=== PATIENT | male | born 1935 | race Caucasian/White ===

== ENCOUNTER 2024-12-10 23:07 | Inpatient (IN) | payer MEDICARE, BC, SELFPAY ==
[2024-12-10] VITALS (21 sets, daily range): BP systolic 140–171; BP diastolic 67–104
[2024-12-10 21:38] LABS: Glucose - Point of Care 108 mg/dl (70-99)
[2024-12-10 21:47] LABS: Hematocrit 37.2 % (39.0-52.0); Hemoglobin 12.8 g/dL (13.0-18.0); Mean Corp Hgb Conc. 34.4 g/dL (33.0-37.0); Mean Corpuscular Volume 97.6 fL (80.0-94.0); Nucleated Red Blood Cells % 0 % (-); Platelet Count 172 10^3/uL (130-400); Red Cell Dist. Width 12.8 % (11.5-14.5)
[2024-12-10 21:59] LABS: INR 1.01; PT 13.8 Sec (11.4-14.6)
[2024-12-10 22:00] LABS: APTT 30.7 Sec (23.4-35.0)
[2024-12-10 22:03] LABS: ALT (SGPT) 15 U/L (0-50); AST (SGOT) 20 U/L (17-59); Albumin 4.1 g/dl (3.5-5.0); Alkaline Phosphatase 76 U/L (38-126); Blood Urea Nitrogen 30 mg/dl (9-20); Calcium 9.1 mg/dl (8.4-10.2); Carbon Dioxide 25 mmol/L (22-30); Chloride 109 mmol/L (98-107); Glucose 109 mg/dl (70-99); Potassium 4.4 mmol/L (3.5-5.1); Sodium 139 mmol/L (135-145); Total Protein 6.2 g/dl (6.3-8.2); eGFR 38.30
[2024-12-10 22:13] LABS: Troponin I < 0.012 ng/ml
[2024-12-10] MEDS: TNKASE 3.2 MG IV (22:19)
--- NOTE | 2024-12-10 22:24 | ED.CVA ---
History of Present Illness
General
Chief Complaint: CVA/TIA Symptoms
Source: patient, family (daughter) and ambulance crew
Exam Limitations: clinical condition
Time Seen by Provider: 12/10/24 21:35
Onset of Stroke Symptoms
Onset of symptoms known: Yes
Date of onset of symptoms: 12/10/24
History of Present Illness
History of Present Illness:
Note:
CHIEF COMPLAINT(S)
- Possible cerebrovascular accident (stroke) with slurred speech and right-sided weakness.
HISTORY OF PRESENT ILLNESS
The patient is reported to have slurred speech and right facial droop. He is unable to move his right leg and arm. EMS reports that his symptom onset is unknown. They state that the patients friend, who is not from the same household, found him
and called for help. According to the patient, he experienced difficulties lifting his right arm and with speech at around 830. He mentioned that the weakness in his right arm began possibly around two hours prior to arrival. The patient does not
take any known strong anticoagulants like warfarin (Coumadin) but mentioned taking blood thinners, potentially aspirin. His history is somewhat limited due to profound dysarthria
ADDITIONAL HISTORY OBTAINED FROM SOURCES OTHER THAN THE PATIENT
The patients friend discovered him and informed EMS about the symptoms. EMS confirmed slurred speech, right facial droop, and right-sided weakness upon arrival. They were informed that this is not the patient�s residence and did not have any other
detailed medical history or time of onset. Patient's friend later arrives and states symptoms began around 8:30 PM
PHYSICAL EXAM
General: Alert.
Skin: Warm, dry.
Head: Normocephalic, atraumatic.
Neck: Supple, trachea midline.
Eyes, Ears, Nose, Mouth, and Throat: Oral mucosa moist.
Cardiovascular: Normal peripheral perfusion, no edema.
Respiratory: Respirations are non-labored.
Gastrointestinal: Abdomen nondistended.
Musculoskeletal: Right facial droop with left gaze preference; flaccid right upper extremity and 1 out of 5 strength in the right lower extremity.
Neurological: Severe dysarthria with significant speech difficulties. Right hemianopsia
PROBLEM LIST
- Acute: Possible cerebrovascular accident (stroke) with slurred speech and right-sided weakness.
PLAN
- Further assess the nature and severity of the possible stroke.
- Immediate imaging (e.g., CT or MRI of the brain) to determine if there is any hemorrhagic event or ischemic stroke.
- Consultation with neurology for further evaluation and management.
- Assess medication use for potential adjustment, particularly concerning aspirin or other blood thinners.
- Monitoring and supportive care as needed.
DIFFERENTIAL DIAGNOSIS
The Differential Diagnosis includes, in no particular order and is not limited to:
- Ischemic stroke
- Hemorrhagic stroke
- Transient ischemic attack (TIA)
- Intracranial hemorrhage
- Brain tumor
- Migraine with aura
- Seizure activity
- Hypoglycemia
- Hypertensive crisis/test
- Central nervous system infection (such as encephalitis)
CARE-UPDATE
12/10/24 - 21:59
Observed onset of weakness and speech changes at 8:30 p.m. Telehealth consultation with neurology initiated to assess these symptoms.
CARE-UPDATE
12/10/24 - 22:06
Patient exhibits notable confusion, unable to correctly identify the current month, and experiences difficulty responding to spoken questions. Neurological assessment reveals he can follow commands to some extent, such as closing his eyes and making
a fist. However, he demonstrates significant challenges with language tasks, indicated by repetitive speech.
Motor examination shows the ability to lift the left arm and leg, but difficulty is noted with the right arm and leg, evidenced by limited capacity to elevate them fully. Sensory testing indicates the patient can feel touch bilaterally, though
verbalizing locations is challenging.
Further assessment with CTA is pending to evaluate potential underlying vascular issues given the focal neurological deficits observed.
EKG
My independent EKG interpretation is:
- Normal sinus rhythm
- Poor R wave progression
- Normal axis
- No Q wave changes
Disposition:
SUMMARY OF ENCOUNTER
The patient, an 89-year-old male, presented to the emergency department with symptoms suggesting a possible stroke, including dense right-sided hemiplegia, acute severe dysarthria, and a right facial droop. The onset of symptoms was noted at
approximately 8:30 PM, as reported by both the patient and his friend. The patient had undergone a nuclear stress test earlier in the day. A stroke alert was initiated, and the patient was rapidly taken for CT imaging, including a CTA and CTP.
Neurology evaluated the patient and, upon imaging review, there was no evidence of a large vessel occlusion. TNK was recommended and administered after discussion and consent from the patients daughter. Neurology advised post-TNK monitoring in the
ICU and a full stroke workup without further intervention at this point.
DISPOSITION
Admit to ICU for monitoring.
ASSESSMENT
Possible cerebrovascular accident, currently managed with TNK and ICU monitoring; mild renal insufficiency.
MANAGEMENT OF THE PATIENTS CARE WAS DISCUSSED WITH
Neurology team for further evaluation and management recommendations.
PLAN
- Administer TNK as per neurology recommendation.
- ICU admission for close monitoring post-TNK administration.
- Conduct a full stroke workup as advised by neurology.
- Monitor renal function due to minor renal insufficiency.
INDEPENDENT REVIEW OF LABS AND INTERPRETATION OF TESTS
My independent review of laboratory data indicates normal hemoglobin, normal white blood cell count, minor renal insufficiency with a creatinine of 1.7, normal liver function tests, and a negative troponin.
PATIENT EDUCATION AND COUNSELING
Discussion with the patients daughter Sarah regarding the administration of TNK and the expected ICU monitoring was conducted, including the rationale and anticipated outcomes.
FOLLOW-UP INSTRUCTIONS
Advised continued monitoring and further evaluation in the ICU; neurology to manage ongoing care.
MEDICATION RECONCILIATION
No evidence of anticoagulant use found upon review of records.
MEDICAL DECISION MAKING
- Number and Complexity of Problems Addressed:
Chronic conditions affecting care: Minor renal insufficiency.
Differential diagnosis includes: Ischemic stroke, hemorrhagic stroke, transient ischemic attack (TIA), intracranial hemorrhage.
- Data:
Category 1:
My independent interpretation of the CT Angiography (CTA) shows no large vessel occlusion. The labs reviewed include normal hemoglobin, white blood cell count, minor renal insufficiency (creatinine 1.7), normal liver function tests, and negative
troponin.
Category 2:
Clinical information obtained from an independent historian: The patients friend provided information about symptom onset.
Neurologys review of the patients pen chart, confirming no anticoagulant use and no old records available at the hospital.
Category 3:
Discussion of management with the neurology team led to the decision to administer TNK and admit the patient to the ICU for monitoring.
-Risk:
The decision to admit the patient to the ICU for monitoring after TNK administration due to the risk of complications associated with an acute cerebrovascular accident.
DIAGNOSIS
- Cerebrovascular accident, unspecified (ICD-10: I63.9)
- Minor renal insufficiency (ICD-10: N19)
Phy Exam
Physical Exam
Physical Exam:
.
Course
Orders/Labs/Results
Orders:
Orders
12/10/24 Breakfast
NPO
Allow oral meds: Yes
Allow clear liquids: Sips of Clears
Comment: Pending formal Speech eval
12/10/24 21:34
CT HEAD STROKE ALERT W/o Cont Stat
Comment:
Reason For Exam: r sided weakness
12/10/24 21:35
CT BRAIN PERF STROKE ALERT Urgent
Comment:
Reason For Exam: R sided weakness
CT HEAD/NECK ANG STROKE ALERT Urgent
Comment:
Reason For Exam: R sided weakness
12/10/24 21:36
Electrocardiogram (*1) Stat
Reason for Study: Other
Other Reason for Exam: neuro symptoms
Bedside Glucose- Treatment ONCE
Cardiac Monitoring- Treatment ONCE
EKG- Treatment ONCE
12/10/24 21:39
Complete Blood Count/With Diff Urgent
Comprehensive Metabolic Panel Urgent
Erythrocyte Sed Rate Urgent
Comment: ADDED
Glycohemoglobin (HgbA1c) Urgent
PTT Urgent
Prothrombin Time Urgent
Troponin I Urgent
12/10/24 22:16
Tenecteplase [Tnkase] 16 mg Syringe [Syringe Non-Pump] 0 ml IV NOW
Provider explained risk/benefits to patient &/or caregiver?: Yes
Blood pressure: 154/67
12/10/24 22:46
Admit/Transfer Patient As Directed
Co-Sign Provider:
Level of Care: Inpatient admission
Assign to:: ICU
Physician / Group: Marc
Diagnosis: Acute CVA
Reason for Hospitalization: CVA
Expected length of stay greater than two midnights?: Yes
ELOS- Estimated Length of Stay in days: 4
I certify the patient meets the requirements for IP care: Yes
Code Status As Directed
Resuscitation Status: Full Code
PRN Pain Medication Management As Directed
May give lesser potent ordered pain med per pt: Yes
preference::
Protocol:: Medication orders for pain may be administered in a
manner that supports deferring to patient preference
when the pt is:
- Requesting an ordered lesser potent pain medication.
Least to most potent pain medications are defined
as: acetaminophen < NSAID < tramadol < opioids
(morphine, oxycodone, hydromorphone).
- Requesting a lesser dose of the same medication IF
ORDERED.
- Requesting a less intrusive route of administration
if both routes are prescribed by the provider (PO <
IV).
12/10/24 23:21
Acetaminophen [Tylenol] 650 mg PO Q4HPRN PRN
Labetalol HCl [Trandate] 5 mg IV Q6HPRN PRN
12/10/24 23:21
Electrocardiogram (*1) Routine
Reason for Study: TIA/Stroke
Case Management Consult Once
Case Management Consult: Discharge Planning
Consult Notification Routine
Specialty to Notify: Principle Software Engineer
Consult Notification Routine
Specialty to Notify: Neurology
Consult Notification Routine
Specialty to Notify: Physiatry
DIETARY IP CONSULT Routine
Reason for Consult: stroke/TIA
Principle Software Engineer Consult Routine
Consulting Provider: Aleksandra Yañez
Was physician already notified: No
Reason for consult: CVA
NEUROLOGY CONSULT Urgent
Consulting Provider: Meño Elise
Was physician already notified: No
Reason for consult: Acute CVA
Parking Supervisor Urgent
Urinalysis Routine
Comment: If not done in the ED
MR Brain Without Contrast Routine
Comment: complete 24 hrs post tenecteplase administration
Reason For Exam: possible stroke, status post tenecteplase
Recent pill cam endoscopy?: No
Activity As Directed
Activity Level: Bathroom Privileges
Out of Bed- Chair
With Assistance
Comment: x 24hr post tenecteplase admin (and no PT/OT). then OOB as tolerated
Bladder Scan As Directed
Follow Bladder Retention/Intermittent Cath Algorithm?: Yes
PRN if no void in __ hours: 6
Frequency: Per Retention Algorithm
If Bladder Scan Result >: 400
then:: Straight cath
EKG with chest pain [ECG as needed] As Directed
ECG as needed for:: Chest Pain
Head of Bed-Restrictions As Directed
Elevation Level: 30 degress
Frequency: At all times
Comment: head of bed up 30 degrees for 24 hours
Hemetest Stools As Directed
Comment: hemoccult all stools if patient received tenecteplase
I/O [Intake/ Output] As Directed
Frequency: Per unit guidelines
NIH Stroke Scale As Directed
Directions: Other
Comment: NIH stroke Scale to be completed prior to thrombolytic administration, then every 1 hour for 2
hours, then every shift and with change in condition and/or mental status.
Neurological Checks As Directed
Frequency: Per unit guidelines
Additional Instructions:: after start of thrombolytic therapy:
q15min x 2 hrs, q30min x 6 hrs, q1h x 16 hrs, q4h x 24 hrs, then every shift and
with any changes.
Notify MD As Directed
Notify physician if: - Any deterioration, change in neurological status, development of severe headache,
nausea and vomiting, or with any signs of bleeding. (see guidelines for suspected
intracerebral hemorrhage).
- If intracranial hemorrhage is suspected or confirmed by imaging, anticipate need for
osmotic diuretic to maintain euvolemia.
Notify MD As Directed
Notify physician if: Glucose less than 70 or greater than 180.
Anticipate corrective insulin orders.
Notify MD As Directed
Notify physician if: SBP not at goal within 30 minutes of prn LABETALOL administration.
notify provider to initiate continuous infusion of nicardipine or clevidipine.
Notify MD As Directed
Notify physician if: unable to obtain MRI of head within 22-32 hours of tenecteplase administration
- contact Neurology for order for CT of head without contrast
Patient Education As Directed
Type: Stroke education packet
Comment: provide to patient and family
Pneumatic Compression Sleeves As Directed
Type: Knee high
Precautions As Directed
Type of Precautions: Bleeding
Comment: post Bleeding Precaution sign at bedside (if patient received tenecteplase)
Straight Cath As Directed
Frequency: Per Retention Algorithm
Additional Instructions: straight cath as needed per acute urinary retention algorithm for 24 hrs
Additional Instructions: for bladder scan greater than 400 mL
Thrombolytic Precautions As Directed
Thrombolytic Precautions:: [place] bleeding precautions. Minimize invasive procedures and venipunctures,
avoid IM injections and over-handling patient, and check all puncture sites for
bleeding. Assess the patient and notify provider for signs and symptoms of
internal or serious bleeding, such as changes in vital signs or evidence of blood
in the urine or stool.
Additional instructions: Hemocult all stools.
Apply direct pressure or pressure dressing to any compressible puncture sites.
No ABG sampling or Gallardo insertion after Tenecteplase administration for 24 hours,
unless directed by the Neurologist/Attending.
Vital Signs As Directed
Frequency: q15m
Call for:: BP greater than 180/105 mmHg or less than 100/60 mmHg
Additional Instructions:: after start of thrombolytic therapy:
q15min x 2 hrs, q30min x 6 hrs, q1h x 16 hrs, q4h x 24 hrs, then every shift and
with any changes.
Weight As Directed
Frequency: Daily
O2 Therapy [RESP] Routine
Nasal Cannula Liter Flow: 2 LPM
Titrate/Wean O2 to maintain O2 sat greater than (%): 94
Comment: starting at 2L/min . Notify Physcian if greater than or equal to 6 L/min
Special Instructions: Titrate oxygen via nasal cannula starting at 2 liters/minute to keep SpO2 greater than
94%. Notify physician if greater than or equal to 6 liters/minute of O2.
Ot Eval And Treat Routine
Physiatry Consult Routine
Consulting Provider: Adelfo Ruvalcaba
Was physician already notified: No
Reason for consult: stroke/TIA
Pt Eval And Treat Routine
Treatment: After 24 hours
Activity Level: Ambulate
With Assistance
Speech Therapy Eval & Treat Routine
DX Deep Vein Thrombosis Video Routine
12/11/24 06:00
Basic Metabolic Panel IN AM
Cardiovascular Evaluation IN AM
Complete Blood Count/No Diff IN AM
PTT IN AM
Prothrombin Time IN AM
Abnormal Lab Results
12/10/24 12/10/24
21:37 21:39
RBC 3.81 L 10^6/uL
(4.70-6.10)
Hgb 12.8 L g/dL
(13.0-18.0)
Hct 37.2 L %
(39.0-52.0)
MCV 97.6 H fL
(80.0-94.0)
MCH 33.6 H pg
(27.0-31.0)
Absolute Monos (auto) 1.0 H 10^3/uL
(0.1-0.6)
Monocytes % 11.2 H %
(1.7-9.3)
Chloride 109 H mmol/L
(98-107)
BUN 30 H mg/dl
(9-20)
Creatinine 1.7 H mg/dL
(0.7-1.3)
Glucose 109 H mg/dl
(70-99)
Total Protein 6.2 L g/dl
(6.3-8.2)
POC Glucose 108 H mg/dl
(70-99)
12/10/24 21:39
12/10/24 21:39
Vital Signs
Initial and Last Documented VS:
Initial Vital Signs
BP
162/77
12/10/24 21:34
Last Documented Vital Signs
Temp Pulse Resp BP Pulse Ox
98.7 F 91 19 171/89 97
12/10/24 22:13 12/10/24 23:20 12/10/24 23:20 12/10/24 23:20 12/10/24 22:49
*Pulse Oximetry
SaO2: 98
Oxygen Mode of Delivery: Room air
Patient hypoxic: no
*Critical Care Note
Total Time (30-74mins, 75-104mins- exclusive of procedures): 55 minutes
ED Attending Note
-
Portions of this chart may have been created with voice recognition software.� Occasional wrong word or��sound alike� substitutions may have occurred due to the inherent limitations of voice recognition software.
Discharge Plan
Departure
Patient Disposition: Admit
Date of Disposition: 12/10/24
Time of Disposition: :25
Admit to: ICU
Presentation/result/management discussed w/ accepting MD/DO: Hospitalist
Discharge Problem:
Acute cerebrovascular accident (CVA)
Interventions
Interventions:
*Risk Screen - Suicide Last Done: 12/10/24 22:11
*General Assessment Last Done: 12/10/24 22:11
*Neglect/Abuse Screening Last Done: 12/10/24 22:11
*ED COVID-19 Vaccine History Last Done: 12/10/24 22:11
*Nursing Disposition Last Done: 12/10/24 23:27
ED- Pulmonary Assessment Last Done: 12/10/24 22:18
ED- Neurological Assessment Last Done: 12/10/24 22:15
ED- Cardiac Assessment Last Done: 12/10/24 22:18
Discharge Date and Time
Discharge Date/Time: 12/10/24 23:27
--- NOTE | 2024-12-10 22:28 | EDRN ---
per patient's friend (Radha Pang) at bedside, pt [place] from [place] this [place] (pt resides there) to go to [facility] for a nuclear stress test. pt went to Radha's [place] tonight to visit in which Radha states he seemed tired, otherwise
was in his usual state of health. Radha states pt started w/ slurred speech & R-sided weakness at around 2030 tonight which was an abrupt onset. Radha contacted 911 who transported pt to [facility]
--- NOTE | 2024-12-10 22:52 | HPS.HSE ---
Family Physician
-
Family Physician: NOT KNOW UNKNOWN - PT DOES
Chief Complaint
-
R Weakness
History of Present Illness
Patient is an 89y M with PMH significant for ASCVD and hypertension who presents to ED complaining of R sided weakness and dysarthria. Patient states that he underwent a stress test at [facility] this AM. He notes that this was a chemical stress test
and states that he has never had this type of stress before. He felt well after the study and traveled to [place] to visit with friends. Shortly after arrival here patient began to note weakness in the R side and slurred speech. Patient and
friend state that these symptoms started just under 2 hours from his arrival here to the ED. Patient arrived with dense R hemiparesis. Decision was made to administer TNK.
Patient is currently awake and alert. Able to answer questions and follow commands - though communication somewhat difficult due to dysarthria.
Patient denies any prior h/o stroke.
He has prior cardiac stents and takes ASA 81mg daily. He denies any OAC / blood thinners.
Medical History
Past Medical History
Past Medical History: Reports Other
Additional Past Medical History:
ASCVD
Hypertension
Past Surgical History: Reports Other
Additional Past Surgical History:
PTCA wuth Stent (x2)
Social History
Tobacco: Non-smoker
Alcohol: Daily (2 drinks daily.)
Drug: None
Family History
Family History: Not pertinent
Allergies / Home Medications
Allergies reflects when Allergies were last updated in [facility].
Home Medications with original date entered in [employer]
Allergy/Medication List:
Unable to obtain at present.
If medication reconciliation has not been performed, why?: Medication List N/A
Review of Systems
-
History Source: Patient
A 12 point ROS was completed and negative except as noted: Yes
Constitutional: Denies Fever or Chills
Respiratory: Denies Cough or Trouble Breathing
Cardiac: Denies Chest Pain or Palpitations
Abdomen/GI: Denies Abdominal Pain, Nausea, Vomiting or Diarrhea
: Denies Dysuria or Frequency
Musculoskeletal: Denies Joint Pain or Edema
Neurological: Reports Weakness, Numbness and Other (Slurred speech.); Denies Dizzy or Headache
Psych: Denies Depression or Anxiety
Physical Exam
Vital Signs
Vital Signs
Temp Pulse Resp BP Pulse Ox
98.7 F 85 23 149/86 97
12/10/24 22:13 12/10/24 22:50 12/10/24 22:50 12/10/24 22:50 12/10/24 22:49
Physical Exam
General: Other (89y M acutely ill.)
HEENT: Other (Dry MM. Neck supple.)
Respiratory: Clear; No Wheezes, Rales or Rhonchi
Cardiac: S1/S2 and Regular Rhythm; No Murmur
GI: Soft, Non Tender, Non Distended and Normal Bowel Sounds
Musculoskeletal: No Clubbing, No Cyanosis and No Edema
Neuro: AO x 3 and Other (R hemiparesis with RUE weakness > RLE weakness. R hemineglect. R facial droop and dysarthria.)
Laboratory Results
-
12/10/24 21:39
12/10/24 21:39
Laboratory Results
PT 13.8 Sec (11.4-14.6) 12/10/24 21:39
INR 1.01 12/10/24 21:39
APTT 30.7 Sec (23.4-35.0) 12/10/24 21:39
Total Bilirubin 0.7 mg/dl (0.2-1.3) 12/10/24 21:39
AST 20 U/L (17-59) 12/10/24 21:39
ALT 15 U/L (0-50) 12/10/24 21:39
Alkaline Phosphatase 76 U/L (38-126) 12/10/24 21:39
Troponin I < 0.012 ng/ml 12/10/24 21:39
Impression/Plan
-
A/P: Patient is an 89y M with PMH significant for ASCVD and hypertension who presents to ED complaining of R sided weakness and dysarthria for 2 hours.
Acute CVA
- Admit to ICU post-TNK.
- Dense R hemiparesis with suspected L MCA CVA.
- CT, CTA, CT perfusion studies done in the ED without large vessel occlusion, perfusion abnormality, etc.
- Post-TNK protocol including BP control, serial neuro exams, etc.
- Begin antiplatelet therapy after 24 hours.
- MRI after 24 hours.
- Neurology evaluation for additional recommendations.
- PT / OT / Speech and PM&R evaluations.
- Would likely benefit from acute rehab following discharge.
- Follow for clinical improvement and / or any new or worsening symptoms.
- Need to confirm meds with pharmay / external records.
ASCVD
- s/p chemical stress test this AM (his first stress that was not done on a treadmill).
- Reconcile and resume usual CV med regimen.
- Restart ASA after 24 hours as noted above.
Hypertension
- Follow BP closely as per protocol.
- IV labetalol for BP > 180/105.
- Adjust med regimen prior to discharge for eventual goal of normotension.
DELMY / CKD
- SCr = 1.7. No prior baseline labs available.
- Follow labs / lytes over 48-72 hours to establish baseline.
DVT Prophylaxis: SCDs
Code Status: Full
--- NOTE | 2024-12-10 23:30 | PTCARENOTE ---
Admit to ICU. HR SR w/ occasional PVCs on telemetry. Handoff NIH completed bedside w/ ED RN. NIH 19. Hemianopia R eye - R upper and R lower field. Slight evidence of contraction in RUE, but no movement/no resistance to gravity. Able to move RLE, but
drifts to bed. Ataxia RUE and RLE. When R side of face and R arm touched, pt states it is his L side being touched or cannot feel it. Mild/moderate dysarthria and severe aphasia - unable to read words or properly identify images. Occasionally uses
inappropriate words. Answers LOC questions appropriately. Pupils reactive 3mm b/l, R slightly more sluggish than L.
[2024-12-10 23:46] LABS: Glucose - Point of Care 133 mg/dl (70-99)
[2024-12-11] VITALS (75 sets, daily range): BP systolic 133–173; BP diastolic 66–99; BMI 20.7
--- NOTE | 2024-12-11 03:00 | PTCARENOTE ---
Symptoms that had previously improved worsened. NIH 21 - [employer] ARCH[employer] aware. CT scan ordered.
[2024-12-11] MEDS: NSS 500 IV (04:11)
[2024-12-11] MEDS: NSS 1000 IV ×3 (04:11→20:06)
[2024-12-11 04:16] LABS: Hematocrit 37.1 % (39.0-52.0); Hemoglobin 12.9 g/dL (13.0-18.0); Mean Corp Hgb Conc. 34.8 g/dL (33.0-37.0); Mean Corpuscular Volume 96.6 fL (80.0-94.0); Platelet Count 178 10^3/uL (130-400); Red Cell Dist. Width 12.7 % (11.5-14.5)
--- NOTE | 2024-12-11 04:19 | W.PN.UPDATE ---
Update Note
Progress Note Update
12/11/2024
0245 Asked to evaluate the patient by RN for worsening neurological symptoms. Patient shortly after arriving to the ICU was able to lift his right arm and leg, vision had improved, speech improved, and facial droop had improved. Now at this time
he has hemiparesis on the right, right sided neglect, complete hemianopia, dysarthria, and right facial droop. SBP 150s, no hypotension noted, BPs have been stable. CT scan head ordered stat and stroke fellow at [facility] called Dr. Tyson to report
worsening symptoms after initial improved s/p TNK. Ctscan read by Dr. Tyson, no bleed noted, recommendations received to repeat CT angio head and neck, IVF bolus, start IVFs, and lower patients head of bed.
NEURO:
Mental Status:�Alert. Speech is slurred and garbled.
Cranial Nerve:�Pupils are equal, round, and reactive to light. Complete hemianopia. Ocular movements are intact. Right facial droop. Speech is slurred, dysarthria. No shoulder shrug with right sternocleidomastoid and trapezius.
Motor:�Muscle bulk and tone are normal. Strength is 0/5 on right arm and leg proximally and distally, left arm and leg 5/5 strength.
Coordination:�unable to perform [id number] or [id number] on right.
Gait:�deferred due to acuity.
[2024-12-11 04:22] LABS: INR 1.02; PT 13.9 Sec (11.4-14.6)
[2024-12-11 04:23] LABS: APTT 29.2 Sec (23.4-35.0)
[2024-12-11 04:37] LABS: Blood Urea Nitrogen 26 mg/dl (9-20); Calcium 9.6 mg/dl (8.4-10.2); Carbon Dioxide 27 mmol/L (22-30); Chloride 110 mmol/L (98-107); Estimated Creatinine Clearance 31 ml/min; Glucose 126 mg/dl (70-99); HDL Cholesterol 60 mg/dl; LDL Cholesterol, Calculated 41 mg/dl; Magnesium 1.8 mg/dl (1.6-2.3); Potassium 3.9 mmol/L (3.5-5.1); Sodium 139 mmol/L (135-145); Very Low Density Lipoprotein 20 mg/dl (0-30); eGFR 44.50
--- NOTE | 2024-12-11 06:00 | PTCARENOTE ---
Pt to CT for repeat head/neck CTA. Pt drowsy but arousable. Hemiparesis on the right, right sided neglect, complete hemianopia, dysarthria, and right facial droop. Able to flex R foot and was observed crossing R leg over L leg during CTscan, but
unable to do once back in room and on command.
--- NOTE | 2024-12-11 07:20 | CON.INTV ---
Addendum entered and electronically signed by Aleksandra Yañez MD 12/12/24 05:25:
Patient transferred out of ICU
[facility] K[facility] service will sign off, please call as needed.
Original Note:
Consultation
Consultation Request
Date/Time Consultation Requested: December 11, 2024
Date/Time Consultation Performed: December 11, 2024
Medical History
-
Chief Complaint: weakness, difficulty speaking
History of Present Illness:
89 yo M PMH HTN, HLD, CAD p/w R sided weakness, dysarthria. He was undergoing nuclear stress test on 12/10 AM and then went to [place] to spend time. He was functioning well after the cardiac stress test. However, he experienced weakness and
difficulty speaking and then presented to the ED in [place].
In the ED, imaging workup revealed no evidence of LVO. TNK was administered given clinical presentation at 22:19, 12/10/2024.
Then, he was admitted to ICU for further management.
Overnight events were notable for worsening right sided hemiparesis which prompted imaging. There was no evidence of bleeding on the repeat imaging.
This morning, his exam is dense right sided hemiplegia with dysarthria, and right sided facial droop.
Past Medical History
Past Medical History: Reports Other
Additional Past Medical History:
ASCVD
Hypertension
Past Surgical History: Reports Other
Additional Past Surgical History:
PTCA wuth Stent (x2)
Social History
Tobacco: Non-smoker
Alcohol: Daily (2 drinks daily.)
Drug: None
Allergies / Home Medications
Allergies
Allergy/AdvReac Type Severity Reaction Status Date / Time
No Known Allergies Allergy Verified 12/10/24 22:09
Review of Systems
-
History Source: Patient
All other systems: Negative unless noted
EENT: No Symptoms
Respiratory: No Symptoms
Cardiac: No Symptoms
Abdomen/GI: No Symptoms
: No Symptoms
Musculoskeletal: No Symptoms
Skin: No Symptoms
Neuro: Weakness and Other (dysarthria)
Endocrine: No Symptoms
Hematologic/Lymphatic: No Symptoms
Vitals / Labs / Diagnostic Testing
Vital Signs
Temp Pulse Resp BP Pulse Ox
97.9 F 78 23 151/90 95
12/11/24 04:31 12/11/24 06:30 12/11/24 06:30 12/11/24 06:30 12/11/24 06:30
Lab Data
12/11/24 04:02
12/11/24 04:02
Laboratory Results
12/10/24 12/11/24
21:39 04:02
PT 13.8 13.9
INR 1.01 1.02
APTT 30.7 29.2
Labs n/f Cr 1.5
Diagnostic Testing:
CT Head/Neck
IMPRESSION:
CTA Head: No significant arterial stenosis. Mild stenosis within the bilateral cavernous ICA secondary to calcified atherosclerotic plaque. 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 No aneurysm.
CTA Neck: There is calcified atherosclerotic plaque of the carotid bifurcation/proximal ICA with approximately 70% stenosis on the right, however image quality at this level is mildly degraded by motion artifact.
There is biapical pleural-parenchymal scarring with pleural calcifications which can be seen as a sequelae of prior asbestos exposure.
Physical Exam
-
HEENT: Normocephalic
Cardiovascular: Regular Rhythm and Other (no murmurs, no peripheral edema)
Respiratory: Clear
GI: Non Tender
Neurology: AO x 3 and Other (below)
Exam:
AOx3
right sided facial droop
unable to move right arm
able to move right leg, but not against gravity
dysarthria
right-sided neglect
able to move left arm and leg
Assessment
-
89 yo M PMH HTN, CAD, HLD p/w right sided hemiparesis, right facial droop most concerning for CVA, s/p TNK.
# Acute CVA
- TNK administered at 22:19, 12/09/2024. F/u MRI 24 hr later
- BP is 160s-170s systolic. Permissive HTN, goal < 180 SBP
- Hold antiplatelet and anti-hypertensive medications for at least 24 hours
- Speech, PT/OT have been consulted, f/u recommendations
- F/u Neurology recommendations
- SCDs for DVT ppx
# HLD
- Chart review, and per daughter, takes rosuvastatin at home.
- Consider restarting rosuvastatin
- Perform medication reconciliation
Recommendations are not final until attending attestation/note.
[2024-12-11 07:27] LABS: Urine Character Clear (Clear)
--- NOTE | 2024-12-11 07:43 | W.PN.HOSP.TC ---
Addendum entered and electronically signed by Anson Murry MD 12/11/24 17:24:
Need to confirm with neurology when to start any blood thinners, including, but not limited to Aspirin.
Original Note:
Today's Communication/Plan
-
See plan
Assessment / Plan
Assessment / Plan
Physical Exam
General: Not in acute distress
HEENT: Dry mucosal membranes. Neck supple.
Respiratory: Clear to Auscultation Bilaterally
Cardiac: S1/S2 and Regular Rhythm
GI: Soft, Non Tender, Non Distended and Normal Bowel Sounds
Musculoskeletal: No Cyanosis and No Edema
Neuro: R hemiparesis with RUE weakness > RLE weakness. R hemineglect. R facial droop and dysarthria.
Assessment/Plan
89y M with PMH significant for cardiac stents and hypertension who presented to the [facility] ED complaining of R sided weakness and dysarthria. Patient stated that he underwent a stress test at [place] on 12/10/24 morning. He noted that this was a
chemical stress test and states that he has never had this type of stress before. He felt well after the study and traveled to [place] to visit with friends. Shortly after arrival here patient began to note weakness in the R side and slurred
speech. Patient and friend state that these symptoms started just under 2 hours from his arrival to the [facility] ED. Patient arrived with dense R hemiparesis. Decision was made to administer TNK.
Acute CVA
- Continue to monitor in ICU status post-TNK -- TNK administered at 22:19, 12/09/2024.
- Dense R hemiparesis with suspected L MCA CVA.
- CT, CTA, CT perfusion studies done in the ED without large vessel occlusion, perfusion abnormality, etc.
- Permissive HTN, goal < 180 SBP
- Per neurology, after initial 24-hour timeframe, would initiate only return the patient to the use of aspirin as the risk of dual antiplatelet therapy is high based on likely large sized area of ischemic injury
- Speech, PT/OT have been consulted, f/u recommendations
- MRI Brain
- Neurology evaluation for additional recommendations.
- Need to confirm meds with pharmamcy / external records.
Right Arm Swelling
-Check RUE ultrasound
Coronary Artery Disease status post (stent(s))
- s/p chemical stress test this AM (his first stress that was not done on a treadmill).
- Reconcile and resume usual CV med regimen.
- Restart ASA as per neurology above
Hypertension
- Follow BP closely as per protocol.
- IV labetalol for BP > 180/105.
- Adjust med regimen prior to discharge for eventual goal of normotension.
DELMY / CKD
- SCr = 1.7-->1.5. No prior baseline labs available.
- Follow labs / lytes over 48-72 hours to establish baseline.
Speech/Diet: RE: Stovall in 3370 - Recommend level 4/puree and moderately (honey) thick liquids. Speech therapy to be continued inpatient and after discharge, outpatient.
DVT Prophylaxis: SCDs
Code Status: Full
Anticipated Discharge: > 48 hours
Subjective/Interval History
-
Date of Service: December 11, 2024
Patient was seen and examined. Overnight events were notable for worsening right sided hemiparesis, repeat imaging was done, there was no evidence of bleeding on the repeat imaging.
Objective Data
-
Labs:
Laboratory Results
12/10/24 12/11/24
21:39 04:02
WBC 9.3 11.4 H
Hgb 12.8 L 12.9 L
Hct 37.2 L 37.1 L
Plt Count 172 178
PT 13.8 13.9
INR 1.01 1.02
APTT 30.7 29.2
Sodium 139 139
Potassium 4.4 3.9
Chloride 109 H 110 H
Carbon Dioxide 25 27
BUN 30 H 26 H
Creatinine 1.7 H 1.5 H
Glucose 109 H 126 H
Calcium 9.1 9.6
Total Bilirubin 0.7
AST 20
ALT 15
Alkaline Phosphatase 76
Vital Signs:
Vital Signs
Temp Pulse Resp BP Pulse Ox
98 F 81 14 159/97 94
12/11/24 07:30 12/11/24 07:20 12/11/24 07:20 12/11/24 07:20 12/11/24 07:27
I&O
12/10/24 12/11/24 12/12/24
06:59 06:59 06:59
Intake Total 500 / 500 200 / 200
Output Total 550 / 550 600 / 600
Balance -50 / -50 -400 / -400
[2024-12-11 07:53] LABS: Urine Red Blood Cell 0-2 /HPF (0-2); Urine Squamous Cell 0-2 /LPF (Few)
--- NOTE | 2024-12-11 08:06 | PTCARENOTE ---
pt received from previous rn- completed nih with offgoing nurse, see flowsheet, NIH 21. nsr with pvcs on monitor, room air, no complaints at this time. pt with right sided hemiparesis, hemianopia, dysarthria and aphasia. right side neglect. neuro
assessment recompleted with Dr. Rouse and pt was able to move right leg more than previous and wiggled right arm. pt was able to say more sentences clearly. daughter at bedside, education and plan of care provided to both, verbalized understanding.
all safety precautions in place, call sims within reach.
--- NOTE | 2024-12-11 08:06 | PTCARENOTE ---
pt received from previous rn- completed nih with offgoing nurse, see flowsheet, NIH 21. nsr with pvcs on monitor, room air, no complaints at this time. pt with right sided hemiparesis, hemianopia, dysarthria and aphasia. neuro assessment recompleted
with Dr. Rouse and pt was able to move right leg more than previous and wiggled right arm. pt was able to say more sentences clearly. daughter at bedside, education and plan of care provided to both, verbalized understanding. all safety precautions in
place, call sims within reach.
--- NOTE | 2024-12-11 08:54 | CON.NEURO4 ---
Addendum entered and electronically signed by Meño Elise MD 12/11/24 11:23:
Studies reviewed.
I have personally examined the patient. I reviewed and agree with the MOLDER FEEDER's Note.
My addenda:
Awake, alert, interactive. No acute distress.
Speech thick, at times not relevant to conversation.
Follows 1-step requests w/ difficulty. No tremor.
Extra-ocular movements with gaze preference to the left
Facial movements reduced on the right side of the face. Hearing intact to normal conversational volume.
Right lower extremity hemiparesis with plegia in the right upper extremity
Neck: full ROM.
Chest: no dyspnea
Heart: no JVD
Ext: (-) Clubbing, (-) Cyanosis, (-) Edema
IMPRESSIONS/RECOMMENDATIONS:
Abrupt onset of right hemibody weakness and aphasia most likely secondary to left middle cerebral artery acute ischemic stroke. Patient received tenecteplase although result is a profound stroke
After initial 24-hour timeframe, would initiate only return the patient to the use of aspirin as the risk of dual antiplatelet therapy is high based on likely large sized area of ischemic injury
Check MRI of brain when possible
Rehabilitation evaluations
D/W patient / family / nursing
All questions answered.
Will continue to follow patient.
Original Note:
Documented by User: Tata Ledbetter NP 12/11/24 10:49
Consultation - Neurology 4
-
CONSULTING PHYSICIAN: Meño Elise MD
REFERRING PHYSICIAN: Hospitalists/Dr. Tran
DICTATED BY: ANDRE Go
DATE/TIME OF REQUEST: 12/10/24
DATE/TIME OF CONSULTATION: 12/11/24
Reason for Consultation: Stroke Alert
History of Present Illness:
This is an 89-year old right-handed male who has presented to the hospital on 12/10/24 with report of right-sided weakness and dysarthria. Patient underwent a cardiac chemical stress test at [place] yesterday morning (12/10/24). The study went smoothly
and he continued to be in his usual state during the day. At 2030, his friend noted that he patient suddenly developed dysarthria and right-sided weakness, prompting him to call 911. EMS activated a stroke alert. CT head, CTA head/neck, and CT
perfusion were obtained and were negative for any acute abnormalities. NIHSS was 17 for right-sided hemiplegia, severe dysarthria, severe aphasia, right facial drooping, right-sided neglect, and right visual field loss. TNK was administered per
protocol. He was not a candidate for IAT due to no LVO. Initially, his symptoms improved slightly, but then worsened significantly again overnight, prompting a stroke alert to be activated. CT head, CTA head/neck was obtained again and is negative
for any acute abnormalities. This morning (12/11/24), patient's symptoms persist. He denies any pain, numbness, chest pain, palpitations, and shortness of breath. He denies any history of stroke, he was taking aspirin 81mg daily.
Past Medical History: HTN, HLD, CAD, gout
Surgical History: Cardiac stent x2
Family History: Reviewed and noncontributory.
Social History: 2 alcoholic beverages daily. Denies tobacco and illicit drug use.
Allergies: No known allergies.
Home Medications: See below.
Review of Symptoms:
Patient denies any fever, headache, chest pain, shortness of breath, GI or symptoms.
�Per the HPI.�All systems are reviewed negative except above.
Physical Exam:
The patient is afebrile, abdomen is nondistended, breathing is unlabored, skin is warm and dry, no edema.
NIH Stroke Scale:
I performed the NIH stroke scale on the patient on 12/11/24 at 0900. The patient scored 17 points on the NIH stroke scale assessment, which were assigned as follows: See below.
Neurologic Examination:
The patient is awake, alert and oriented x 3. He is able to follow commands and answer questions appropriately. There is moderate aphasia. There is severe dysarthria. On cranial nerve assessment, pupils are 3 mm bilateral, round and reactive to
light and accommodation. There is a dense right homonymous hemianopia. There is a left gaze preference, does not cross midline to the right. There is right facial drooping. Hearing is intact bilaterally to normal conversation volume. Tongue palate
and uvula are midline. Motor strengths are 5/5 left upper, RUE 0/5, LLE 5/5, RLE 3/5 extremities on medical research [place] scale. There is drift in the RLE. No involuntary movement noted. Deep tendon reflexes are 2+ bilateral upper and left lower
extremities, trace RLE, and Babinski is positive on the right. There is extinction noted on double simultaneous stimulation on the right side. Coordination is intact by finger to nose in the LUE, FARIDA RUE.
Lab Results: See below.
Neuro Imaging:
1. CT Head 12/10/24: No acute intracranial abnormality. ASPECT score: 10.
2. CTA Head/Neck 12/10/24: CTA Head: No significant arterial stenosis. Mild stenosis within the bilateral cavernous ICA secondary to calcified atherosclerotic plaque. 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 No aneurysm. CTA Neck: There is calcified atherosclerotic plaque of
the carotid bifurcation/proximal ICA with approximately 70% stenosis on the right, however image quality at this level is mildly degraded by motion artifact. There is biapical pleural-parenchymal scarring with pleural calcifications which can be
seen as a sequelae of prior asbestos exposure.
3. CT Perfusion 12/10/24: CBF 0.
4. CT Head 12/11/24: Cerebral atrophy along with chronic small vessel ischemia in the periventricular white matter. Stable 8 mm low-attenuation focus in the white matter inferior to the left frontal horn. This could also represent chronic small
vessel ischemia. It could instead represent late subacute to chronic infarct. No acute CT findings in the head.
5. CTA Head/Neck 12/11/24: results pending
Differentials for the patient's presentation include:
1. Large acute ischemic stroke likely producing patient's symptoms.
2. CTA head/neck suggestive of incidental R ICA 70% stenosis, awaiting repeat study results.
Patient has the following risk factors for their symptoms: HTN, HLD, age
IV Tenecteplase/IAT candidacy: He received TNK per protocol; not a candidate for IAT due to no LVO.
Recommendations:
� administer IV Tenecteplase (TNK) per protocol urgently while keeping patient's blood pressure to a goal of systolic less than 185 and diastolic less than 110 mmHg during infusion of TNK
� place the patient in medical ICU
� goal blood pressure over the next 24 hours would be less than 180/105 mmHg
� check MRI of the brain within 22-32 hours of TNK without contrast for localization of the stroke
� hold all antiplatelets, OAC meds, DOAC meds, heparinoids for next 24 hours
� check lipid panel and hemoglobin A1c
� LDL goal <70. LDL is 41. Okay to continue home rosuvastatin 20mg and ezetimibe 10mg daily as LDL is at goal.
� goal blood glucose levels for patient would be less than 180 mg/dL, hbA1c is 5.7.
� Speech, PT, OT evaluations needed
� Physiatry consultation warranted
� DVT prophylaxis with sequential compression devices over next 24 hours, can be started on Enoxaparin subcutaneous for DVT prophylaxis beginning 24 hours after TNK provision.
� medical educational materials will be provided
We will follow.
Discussed patient care with: Dr. Elise, the patient, patient's daughter
Vital Signs and Labs
-
Vital Signs and Labs:
Vital Signs
Temp Pulse Resp BP Pulse Ox
98 F 70 16 160/87 97
12/11/24 07:30 12/11/24 08:45 12/11/24 08:45 12/11/24 08:30 12/11/24 08:45
Lab Results
12/11/24 04:02
12/11/24 04:02
PT 13.9 Sec (11.4-14.6) 12/11/24 04:02
INR 1.02 12/11/24 04:02
APTT 29.2 Sec (23.4-35.0) 12/11/24 04:02
Sodium 139 mmol/L (135-145) 12/11/24 04:02
Potassium 3.9 mmol/L (3.5-5.1) 12/11/24 04:02
BUN 26 mg/dl (9-20) H 12/11/24 04:02
Glucose 126 mg/dl (70-99) H 12/11/24 04:02
Calcium 9.6 mg/dl (8.4-10.2) 12/11/24 04:02
Phosphorus 3.4 mg/dl (2.5-4.5) 12/11/24 04:02
LDL Cholesterol, Calc 41 mg/dl 12/11/24 04:02
Medications
-
Active Medications
Generic Name Dose Route Start Last Admin
Trade Name Freq PRN Reason Stop Dose Admin
Acetaminophen 650 mg 12/10/24 23:21
Acetaminophen 325 Mg Tablet PO 01/07/25 23:20
Q4HPRN PRN
ESPINOZA, mild pain, or temp >100.4F
Sodium Chloride 1,000 mls @ 100 mls/hr 12/11/24 04:15 12/11/24 04:11
Nss IV 1,000 mls
.Q10H LASHANDA Administration
Labetalol HCl 5 mg 12/10/24 23:21
Labetalol Hcl 5 Mg/1 Ml (20 Mg/4 Ml) Injection IV 01/07/25 23:20
Q6HPRN PRN
BP > 180/105 mmHg
Sodium Chloride 0 flush 12/10/24 23:00
Sodium Chloride 0.9% (Flush) Syringe IV 01/07/25 22:59
PER PROTOCOL LASHANDA
Home Medications
�Medication �Instructions �Recorded
allopurinol 200 mg tablet 200 mg PO DAILY Gout 12/11/24
amlodipine 10 mg tablet 10 mg PO DAILY Blood Pressure 12/11/24
aspirin 81 mg tablet 81 mg PO DAILY Blood Clot 12/11/24
Prevention/Tx
ezetimibe 10 mg tablet 10 mg PO DAILY High Cholesterol 12/11/24
metoprolol succinate 25 mg 25 mg PO DAILY Blood Pressure 12/11/24
tablet,extended release 24 hr
rosuvastatin 20 mg tablet 20 mg PO DAILY High Cholesterol 12/11/24
NIH Stroke Score
Subsequent NIH Scale
Date of Subsequent NIH Scale: 12/11/24
Time of Subsequent NIH Scale: 09:00
NIH Stroke Score
Level of Consciousness: 0 - Alert
LOC Questions: 0-Answers both correctly
LOC Commands: 0-Performs both correctly
Best Horizontal Gaze: 1-Partial gaze palsy
Visual Shea: 2=Full hemianopia
Facial Palsy: 2=Partial paralysis
Motor - Right Arm: 4=No movement
Motor - Left Arm: 0=No drift 10 seconds
Motor - Right Le-Partial vs. gravity
Motor - Left Le-No drift 5 seconds
Limb Ataxia: 0-Absent
Sensation: 0-Normal
Best Language: 2-Severe aphasia
Dysarthria: 2-Severe slurring
Extinction and Inattention: 2-Total eh inattention
NIH Total Score:: 17
Modified [place] (mRS) Score
Modified [place] Scale (mRS): Moderately severe disability. Unable to attend to bodily needs/walk.
Score: 4
Alteplase Contraindication
Inclusion and Exclusion criteria reviewed: Yes

Documented by User: Meño Elise MD 12/11/24 11:18
NIH Stroke Score
NIH Stroke Score
NIH Total Score:: 17
Modified [place] (mRS) Score
Score: 4
--- NOTE | 2024-12-11 09:29 | PTCARENOTE ---
see neuro note for further detail. ok per neuro to have hob >30 degrees
[2024-12-11 10:04] LABS: Glycohemoglobin (HgbA1c) 5.7 % (4.0-5.6)
--- NOTE | 2024-12-11 11:04 | PTOTSP ---
Speech Therapy Assessment
Swallowing: Motor planning, right neglect and oral/motor weakness contribute to oral and suspected pharyngeal dysphagia that was characterized by mild right buccal pocketing and overt signs of aspiration with thin and mildly thick liquids. Patient
exhibiting right neglect with limited awareness of mild oral stasis. Patient also with
Language: Limited assessment as patient was lethargic, visual deficits (neglect and ? cut), and many responses were difficult to understand due to severity of dysarthria. However, there appeared to be an expressive/receptive aphasia as evidenced by
word substitutions, limited sentence length, apraxia and difficulty following commands. Limited self feeding ability given visual disturbances and motor planning difficulty.
Recommend
1. Initiate oral diet of Level 4/Puree and Moderately Thick Liquids.
2. Allow ice chips with supervision in between meals per ARHP.
3. Meds crushed in applesauce.
4. Aspiration precautions
5. Check mouth for pocketed food after meals.
6. Assist with meals
7. Speech therapy to follow. Will attempt more in-depth language assessment and reassess for diet advancement and/or need for instrumental testing.
--- NOTE | 2024-12-11 11:18 | PTCARENOTE ---
pt seen by speech therapy. remains drowsy. pt waxes and wanes with orientation to place and time, ability to use right side and speech. neuro made aware, no further orders at this time.
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
--- NOTE | 2024-12-11 17:16 | CM ---
Addendum entered by Tabatha Brooks 12/11/24 17:29:
Significant Other/LIZTamiko Bean Maurizio; phone #
Original Note:
Initial Assessment completed outside patient's room with Significant Other/LIZGeneva Tamiko Maurizio
Daughter, Sarah Stovall is secondary contact; phone # [phone]
Pharmacy verified: [facility], [address] [place] [address]
Family Physician verified: Jhon Honeycutt MD, [address] [place] [address]; phone # [phone]
Patient lives w/ significant other; one floor home; 3 steps to enter; full bath w/ walk-in shower; stall has bench and shower rail
PLOF: significant other reported that patient was an active senior, retired, independent with ambulation and ADLs; drives; No DME
NO SNF or Home Health utilization history
Transport to be determined
PT/OT assessment pending; Physiatry Consult ordered
Discharge plan to be determined pending hospital course. Case Management will monitor and support as needed
--- NOTE | 2024-12-11 21:54 | PTCARENOTE ---
Pt received start of shift, HR SR w/ PVCs. NIH 19, completed at bedside with outgoing RN. RA 97%. No complaints at this time. Pt drowsy but arousable. Hemiparesis on the right, right sided neglect, complete hemianopia, dysarthria, and right facial
droop. Oriented to person, place, and time. Occasionally uses inappropriate words in response.
To MRI and back to room w/o complications.
--- NOTE | 2024-12-11 22:35 | W.PN.UPDATE ---
Update Note
Progress Note Update
Reviewed MRI of the brain results with family and patient at bedside, all questions answered.
MRI fo the brain 12/11/24
There is restricted diffusion involving the medial left temporal lobe, left cerebral peduncle and left posterior basal ganglia consistent with acute infarction. There is no evidence of hemorrhagic transformation.
Patient stable from stroke standpoint, vital signs stable, can downgrade to telemetry and reviewed with Dr. Yañez, skin care therapist. Orders for transfer to tele placed.
[2024-12-12] VITALS (9 sets, daily range): BP systolic 124–167; BP diastolic 70–95; O2SAT 95; BMI 21.4
--- NOTE | 2024-12-12 00:40 | TRANSFER ---
Pt received from ICU into 418-01. Pt is drowsy but verbally arousable, AAOx1 to self. Reporting pain in right groin, unable to rate. Bed alarm placed under pt. VSS. Limb alert bracelet placed to right arm d/t swelling. NIH score of 20 on
transfer. Bed in lowest position, HOB elevated to 30 degrees per order.
[2024-12-12 08:04] LABS: Hematocrit 40.2 % (39.0-52.0); Hemoglobin 13.7 g/dL (13.0-18.0); Mean Corp Hgb Conc. 34.1 g/dL (33.0-37.0); Mean Corpuscular Volume 96.4 fL (80.0-94.0); Platelet Count 162 10^3/uL (130-400); Red Cell Dist. Width 12.9 % (11.5-14.5)
[2024-12-12 08:28] LABS: Blood Urea Nitrogen 17 mg/dl (9-20); Calcium 9.4 mg/dl (8.4-10.2); Carbon Dioxide 21 mmol/L (22-30); Chloride 109 mmol/L (98-107); Estimated Creatinine Clearance 38 ml/min; Glucose 105 mg/dl (70-99); Magnesium 1.8 mg/dl (1.6-2.3); Potassium 4.0 mmol/L (3.5-5.1); Sodium 139 mmol/L (135-145); eGFR 52.84
--- NOTE | 2024-12-12 08:32 | W.PN.HOSP.TC ---
Today's Communication/Plan
-
Embolic stroke suspected
Significant ipsilateral carotid stenosis -- vascular on board
Given embolic nature of stroke: cardiology evaluation and echo
Continue DAPT with ASA and Plavix
Heparin subq DVT prophylaxis+SCDs
Assessment / Plan
Assessment / Plan
Physical Exam
General: Not in acute distress
HEENT: Dry mucosal membranes. Neck supple.
Respiratory: Clear to Auscultation Bilaterally
Cardiac: S1/S2 and Regular Rhythm
GI: Soft, Non Tender, Non Distended and Normal Bowel Sounds
Musculoskeletal: No Cyanosis and No Edema
Neuro: R hemiparesis with severe right sided weakness. Right hemineglect. Right facial droop and severe dysarthria.
Assessment/Plan
89y M with PMH significant for cardiac stents and hypertension who presented to the [facility] ED complaining of R sided weakness and dysarthria. Patient stated that he underwent a stress test at [place] on 12/10/24 morning. He noted that this was a
chemical stress test and states that he has never had this type of stress before. He felt well after the study and traveled to [place] to visit with friends. Shortly after arrival here patient began to note weakness in the R side and slurred
speech. Patient and friend state that these symptoms started just under 2 hours from his arrival to the [facility] ED. Patient arrived with dense R hemiparesis. Decision was made to administer TNK.
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
Acute Strokes of the medial left temporal lobe, left cerebral peduncle and left posterior basal ganglia
- TNK administered at 22:19, 12/09/2024 -- repeat neuroimaging 24 to 36 hours later showed no bleed
- CTA head and neck with significant bilateral carotid stenosis
- MRI Brain with suspected left-sided embolic strokes as above
- Start DAPT with Aspirin and Plavix -- plan to continue DAPT for 90 days (Day 1 is 12/12/24)
- Start Heparin DVT prophylaxis
- Start high intensity statin with Lipitor 80 mg daily
- Speech, PT/OT have been consulted, f/u recommendations
- Neurology evaluation for additional recommendations.
- Echo, cardiology consult given embolic nature of stroke
- Vascular Surgery consult given significant possibly symptomatic carotid stenosis ipsilaterally -- tentative plan for left carotid endarterectomy (likely 12/16/24)
Right Arm Swelling
- RUE ultrasound with no clots
Coronary Artery Disease status post (stent(s))
History of right coronary artery PCI in 1998 followed by RCA NESSA x 3 in 2011
- s/p chemical stress test on the morning of 12/10/24 (his first stress that was not done on a treadmill).
- Restart ASA as per neurology above
- Continue home beta danita
- Switched home Crestor to high intensity Atorvastatin
- Resume Ezetimibe
Hypertension
- Continue beta danita
- Continue Amlodipine
DELMY / CKD
- SCr = 1.7-->1.5-->1.3 after the administration of intravenous fluids.
- Follow labs / lytes over 48-72 hours to establish baseline.
GERD?
-Continue home PPI
Pulmonary Fibrosis
-Patient follows with pulmonary in [place] and has interstitial pulmonary fibrosis and was initiated on Nintedanib but was unable to tolerate due to diarrhea and fatigue.
-Nintedanib also has risk of bleeding so avoiding it now anyway
History of Vitamin D Deficiency?
-Continue Vitamin D
Gout
-Continue Allopurinol
Speech/Diet: IDDSI Minced and Moist Diet with Thin Liquids. Speech therapy to be continued inpatient and after discharge, outpatient.
DVT Prophylaxis: SCDs. Heparin Subq.
Code Status: Full
On 12/12/24, I spoke extensively with patient's domestic partner Tamiko, as well as patient's daughters, including Gus. I explained patient's current status and management plan, and I answered all of their questions and concerns to satisfaction.
On 12/12/24, I called patient's primary care provider's (Dr. Jhon Honeycutt's) office and I spoke to the nurse there, and I notified them that patient is hospitalized with stroke.
Dr. Honeycutt: [phone] (Fax number - [phone])
Anticipated Discharge: > 48 hours
Subjective/Interval History
-
Date of Service: December 12, 2024
Patient was seen and examined. It was still hard to make out his speech.
Objective Data
-
Labs:
Laboratory Results
12/12/24
07:35
WBC 10.3
Hgb 13.7
Hct 40.2
Plt Count 162
Sodium 139
Potassium 4.0
Chloride 109 H
Carbon Dioxide 21 L
BUN 17
Creatinine 1.3
Glucose 105 H
Calcium 9.4
Vital Signs:
Vital Signs
Temp Pulse Resp BP Pulse Ox
97.5 F 90 18 167/87 95
12/12/24 07:58 12/12/24 07:58 12/12/24 07:58 12/12/24 07:58 12/12/24 07:58
I&O
12/11/24 12/12/24 12/13/24
06:59 06:59 06:59
Intake Total 500 / 500 1420 / 1420 600 / 600
Output Total 550 / 550 2525 / 2525
Balance -50 / -50 -1105 / -1105 600 / 600
[2024-12-12] MEDS: LOW STRENGTH ASPIRIN 81 MG PO (10:08)
[2024-12-12] MEDS: NSS 1000 IV (10:09)
--- NOTE | 2024-12-12 10:14 | CON.CAR ---
Addendum entered and electronically signed by Manuel Hubbard MD 12/12/24 17:21:
I saw and examined the patient.
The Electronic Integrated Systems Mechanic's note was reviewed and I agree with the note.
Comment: Briefly, 81-year-old man past medical history of CAD status post PCI, hypertension, hyperlipidemia who presented with acute CVA. Cardiology was consulted to evaluate for cardioembolic source of stroke.
Telemetry reviewed and no evidence of atrial fibrillation seen
Long-term outpatient cardiac specialist would be reasonable to assess for A-fib. Patient follows with a umbrella tipper machine at [facility] and would be reasonable to have this arranged through their office.
Normal LV function on transthoracic echocardiogram today
Agree with aspirin/Plavix and high intensity statin
Currently being worked up by vascular surgery for left carotid endarterectomy as this was felt to be a likely source
Addendum entered and electronically signed by Erin Kelly PA-C 12/12/24 15:05:
Record received from outpatient umbrella tipper machine Dr Moreno:
Correction to below patient had right coronary artery PCI in 1998. He then had RCA NESSA x 3 in 2011. He has no history of paroxysmal atrial fibrillation or arrhythmia per their documentation.
He follows with pulmonary in [place] and has interstitial pulmonary fibrosis and was initiated on Nintedanib but was unable to tolerate due to diarrhea and fatigue.
He did complain of some exertional fatigue at office visit in September 2024 prompting him to undergo a Lexiscan nuclear stress test on 12/10/2024. Perfusion images demonstrated significant diaphragmatic attenuation artifact more pronounced on stress
imaging. There was no definitive evidence of ischemia. They recommended PET CT stress test
Echo in September 2024: EF 60 to 65%. Stage II diastolic dysfunction. Mild to moderate MR, mild TR, PAP 39 mmHg.
Original Note:
Consultation
Consultation Request
Date/Time Consultation Requested: 12/12/2024
Date/Time Consultation Performed: 12/12/2024
Requesting Provider: Dr. Murry
Performing Provider: Erin Kelly PA-C for Dr. Hubbard
Reason for Consultation: Concern for embolic stroke
Medical History
-
History of Present Illness:
Patient is an 89-year-old male with past medical history significant for coronary artery disease with history of coronary stents, hypertension, hyperlipidemia who presented to [facility] ED on 12/10/2024 complaining of right sided weakness and dysarthria.
Patient sees cardiology and had pharmacologic stress test at [facility] on day of presentation and felt well prior to stress test. He then traveled to [place] to visit friends when he developed acute onset of right-sided weakness and difficulty with
speech he called 911 and presented to hospital as stroke alert. NIH stroke scale score 17 on arrival. CTA of head and neck were negative for large vessel thrombosis or occlusion. Head CT was negative for bleed. EKG showed sinus rhythm. Patient
was provided TNK. MRI was performed on 12/11/2024 which confirmed medial left temporal lobe, left cerebral peduncle and left posterior basal ganglia acute infarction. Cardiology being asked to see patient given concern for acute cardioembolic event.
Talked with patient's significant other Tamiko at bedside as well as his daughters Sarah and Gus who helped to provide history. They report he was very active individual prior to his stroke. He had seen cardiology for routine visit and was
not having any symptoms. He has no history of any cardiac arrhythmias and had stenting in 1999 and 2012. Recent stress test was routine. They think he had an echo in October of this year.
Past medical history:
Coronary artery disease with prior stenting at outside institution
Hypertension
Hyperlipidemia
Gout
Past Medical History
Past Medical History: Other (See HPI)
Past Surgical History: Cardiac (Coronary stents 1999, 2012)
Social History
Tobacco: Non-Smoker
Alcohol: Daily (2 drinks daily)
Drug: None
Living: Other (Significant other)
Family History
Family History: Reviewed & Not Pertinent
Allergies / Home Medications
Allergy/AdvReac Type Severity Reaction Status Date / Time
No Known Allergies Allergy Verified 12/10/24 22:09
�Medication �Instructions �Recorded �Confirmed �Type
allopurinol 200 mg tablet 200 mg PO DAILY Gout 12/11/24 History
amlodipine 10 mg tablet 10 mg PO DAILY Blood Pressure 12/11/24 History
aspirin 81 mg tablet 81 mg PO DAILY Blood Clot 12/11/24 History
Prevention/Tx
ezetimibe 10 mg tablet 10 mg PO DAILY High Cholesterol 12/11/24 History
metoprolol succinate 25 mg 25 mg PO DAILY Blood Pressure 12/11/24 History
tablet,extended release 24 hr
rosuvastatin 20 mg tablet 20 mg PO DAILY High Cholesterol 12/11/24 History
Review of Systems
-
History Source: Patient
All other systems: Negative unless noted
Physical Exam
Vital Signs
Temp Pulse Resp BP Pulse Ox
97.5 F 90 18 167/87 95
12/12/24 07:58 12/12/24 07:58 12/12/24 07:58 12/12/24 07:58 12/12/24 07:58
GEN: No distress, awake, Ox3, sitting in chair
HEENT: supple, anicteric, mmm
LUNGS: CTA, no wheezes/rales
CV: Reg, S1/S2, no murmur, rub or gallop; faint right carotid bruit
ABD: soft, BS+, NT/ND
EXT: No edema
NEURO: Right sided facial droop with right-sided weakness, aphasic
SKIN: No rash, Clubbing or cyanosis
Lab Results
12/12/24 07:35
12/12/24 07:35
Troponin I < 0.012 ng/ml 12/10/24 21:39
Impression / Plan
-
PCP: Anthony Rashid
Paste Up Artist Apprentice: Dr. Edvin Cruz
Impression:
Presented 12/10/2024 with right-sided weakness, hemiparesis, dysarthria/aphasia
Status post TNK 12/10/2024
Acute left hemispheric stroke on MRI
Coronary artery disease with prior stenting in 1999 an 2012
Hypertension
Hyperlipidemia
Gout
Echo 12/12/2024: Ordered
Plan:
Presented 12/11/2024 with right-sided weakness, hemiparesis, dysarthria/aphasia with NIH stroke scale score of 17. Head CT was negative for acute bleed. CTA of head and neck failed to demonstrate any significant large vessel occlusion or evidence
of significant stenosis/thrombosis.
- s/p TNK 12/10/2024
- MRI 12/11/2024 with acute left hemispheric stroke of medial left temporal lobe, left cerebral peduncle and left posterior basal ganglia.
- Still with severe right sided weakness/leg neglect and speech impairment
- EKG on admission showed sinus rhythm. Per review of telemetry patient has been in sinus rhythm with frequent PACs and PVCs. There is been no documentation of paroxysmal atrial fibrillation thus far and per review of patient's history no history
of arrhythmia prior to admission
- Discussed with neurology, Dr Cabrera, plan is for dual antiplatelet therapy (aspirin and Plavix), likely for 90 days at their recommendation. If patient is found to have paroxysmal atrial fibrillation would warrant anticoagulation.
- Will need outpatient monitor. Have reached out to patient's outpatient umbrella tipper machine for records and to see if they would like to facilitate monitor
- Would check echocardiogram. Hold on SAM at this time
- Lipids 12/11/2024 TC 121, HDL 60, LDL 41, triglycerides. Lipids are at goal. Continue statin and Zetia.
- Blood pressures have been elevated. Patient taken metoprolol 25 mg daily and amlodipine 10 mg daily as outpatient. He has not been given this medication thus far this admission. Would resume 25 mg daily for both blood pressure and arrhythmia
control given he has PACs and PVCs
- Known history of coronary artery disease, EKG without ischemia. Troponin negative. Per patient report he had stress test on day of presentation. Will obtain cardiac records. Continue medical therapy/risk factor modification with aspirin,
beta-danita, statin and amlodipine.
- He was noted to have incidental finding of right ICA cyst gnosis approximately 70%. Will need surveillance monitoring
- Appreciate PT/OT; given significant right sided neglect and speech impairment patient would benefit from acute rehab upon discharge
- Speech therapy has recommended level 4/puree and moderately (honey) thick liquids. Speech therapy to be continued inpatient and after discharge, outpatient.
Talked with patient's significant other Tamiko at bedside as well as his daughters Sarah and Gus, Dr. Cabrera, nursing and resident
HPI:12/12/2024:
Patient is an 89-year-old male with past medical history significant for coronary artery disease with history of coronary stents, hypertension, hyperlipidemia who presented to [facility] ED on 12/10/2024 complaining of right sided weakness and dysarthria.
Patient sees cardiology at [facility] previously seen Dr. Russell now follows with Dr. Garcia and had routine pharmacologic stress test at [facility] on day of presentation and felt well prior to stress test. He then traveled to [place] to visit friends
when he developed acute onset of right-sided weakness and difficulty with speech he called 911 and presented to hospital as stroke alert. NIH stroke scale score 17 on arrival. CTA of head and neck were negative for large vessel thrombosis or
occlusion. Head CT was negative for bleed. EKG showed sinus rhythm. Patient was provided TNK. MRI was performed on 12/11/2024 which confirmed medial left temporal lobe, left cerebral peduncle and left posterior basal ganglia acute infarction.
Cardiology being asked to see patient given concern for acute cardioembolic event.
Talked with patient's significant other Tamiko at bedside as well as his daughters Sarah and Gus who helped to provide history. They report he was very active individual prior to his stroke. He had seen cardiology for routine visit and was
not having any symptoms. He has no history of any cardiac arrhythmias and had stenting in 1999 and 2012. Recent stress test was routine. They think he had an echo in October of this year.
Data Reviewed
-
EKG: Report Reviewed by me, Discussed with Physician, Discussed with Patient and Discussed with Family
Radiology: Report Reviewed by me, Discussed with Physician, Discussed with Patient and Discussed with Family
CT Scan: Report Reviewed by me, Discussed with Physician, Discussed with Patient and Discussed with Family
Ultrasound: Discussed with Family
MRI: Report Reviewed by me, Discussed with Physician, Discussed with Patient and Discussed with Family
Labs: Labs Reviewed by me, Discussed with Physician and Discussed with Patient
Old Records: Requested (Outpt umbrella tipper machine and PCP)
--- NOTE | 2024-12-12 11:19 | CON.VAS ---
Documented by User: Jessica Rizo MD, Resident 12/12/24 12:41
Consultation
Consultation Request
Date/Time Consultation Requested: 12/11/24; 7pm
Date/Time Consultation Performed: 12/12/24, 10:30am
Requesting Provider: Anson Murry
Performing Provider: Rey Gallardo
Reason for Consultation: R carotid stenosis
Medical History
-
Chief Complaint: R carotid stenosis; pt here for L MCA stroke
History of Present Illness:
Enzo Stovall is an 89yo M with a pmh of HTN & ASCVD s/p coronary artery stenting who p/w R-sided weakness and dysarthria found to have L MCA ischemic stroke. Vascular surgery consulted to f/u head/neck CTA findings of bilateral carotid artery
calcification & stenosis.
Pt presented after cardiac stress test with R-sided weakness & dysarthria c/f L MCA stroke. CT head negative for hemorrhagic stroke, pt received TNK. Started on atorvastatin 80mg, aspirin, heparin. MRI head performed on 12/11/2024 which confirmed
medial left temporal lobe, left cerebral peduncle and left posterior basal ganglia acute infarction. CTA head/neck on 12/11 demonstrated 'Stenosis of approximately 70% in the proximal right internal carotid artery. Stenosis of approximately 60% at
the left carotid bifurcation. Findings similar to the prior CT angiogram.' Pt was taking aspirin at home until 1-2 months ago. Adherent to home metoprolol 25mg. Denies any hx of TIA sx (no amaurosis fugax, slurring of speech, hemifacial numbness or
weakness) prior to the presenting incident. Has not smoked for 40+ years.
Past Medical History
Past Medical History: CAD and HTN
Past Surgical History: Other (coronary artery stents)
Social History
Tobacco: Former Smoker (>40 yrs ago)
Allergies / Home Medications
Allergy/AdvReac Type Severity Reaction Status Date / Time
No Known Allergies Allergy Verified 12/10/24 22:09
�Medication �Instructions �Recorded �Confirmed �Type
allopurinol 200 mg tablet 200 mg PO DAILY Gout 12/11/24 History
amlodipine 10 mg tablet 10 mg PO DAILY Blood Pressure 12/11/24 History
aspirin 81 mg tablet 81 mg PO DAILY Blood Clot 12/11/24 History
Prevention/Tx
ezetimibe 10 mg tablet 10 mg PO DAILY High Cholesterol 12/11/24 History
metoprolol succinate 25 mg 25 mg PO DAILY Blood Pressure 12/11/24 History
tablet,extended release 24 hr
rosuvastatin 20 mg tablet 20 mg PO DAILY High Cholesterol 12/11/24 History
Review of Systems
-
History Source: Family
Neurological: Reports Headache (headaches on/off preceding event)
Physical Exam
Vital Signs
Temp Pulse Resp BP Pulse Ox
98.7 F 85 18 134/80 98
12/12/24 11:17 12/12/24 11:17 12/12/24 11:17 12/12/24 11:17 12/12/24 11:17
Lab Results
12/12/24 07:35
12/12/24 07:35
Troponin I < 0.012 ng/ml 12/10/24 21:39
Physical Exam
General: No Apparent Distress
HEENT: Normocephalic, Anicteric and Atraumatic
Respiratory: Non Labored Respirations
Neuro: Awake
Assessment / Plan
-
Enzo Stovall is an 89yo M with a pmh of HTN & ASCVD s/p coronary artery stenting who p/w R-sided weakness and dysarthria found to have L MCA ischemic stroke. Vascular surgery consulted to f/u head/neck CTA findings of bilateral carotid artery
calcification & stenosis.
Assessment: Pt with 70% R ICA stenosis unchanged from prior imaging. Given L-sided MCA stroke, unlikely that this was relevant to current CVA event. Denies any hx of R-sided facial sx or amaurosis fugax indicative of R ICA ischemic TIAs. L carotid
bifurcation 60% stenosis w plaque extending from L common carotid. For pts with CVA, carotid stenosis 50-69% may be considered candidate for endarterectomy. Given burden of calcification on L-sided carotid, likely embolic source; plan for CEA
reasonable.
Plan:
- Plan for L carotid endarterectomy (likely Sunday, 12/16)
- Continue medical mgmt of cardiovascular risk factors
- DVT ppx: heparin
Data Reviewed
-
CT Scan: Image Personally Visualized and interpreted and Report Reviewed by me
Labs: Labs Reviewed by me
Critical Care Time (in minutes): 45
Total Time Spent with Patient (in minutes): 15

Documented by User: Rey Gallardo III, MD 12/12/24 20:31
Assessment / Plan
-
Enzo Stovall is an 89yo M with a pmh of HTN & ASCVD s/p coronary artery stenting who p/w R-sided weakness and dysarthria found to have L MCA ischemic stroke. Vascular surgery consulted to f/u head/neck CTA findings of bilateral carotid artery
calcification & stenosis.
Assessment: Pt with 70% R ICA stenosis unchanged from prior imaging. Given L-sided MCA stroke, unlikely that this was relevant to current CVA event. Denies any hx of R-sided facial sx or amaurosis fugax indicative of R ICA ischemic TIAs. L carotid
bifurcation 60% stenosis w plaque extending from L common carotid. For pts with CVA, carotid stenosis 50-69% may be considered candidate for endarterectomy.
Plan:
- Continue medical mgmt of cardiovascular risk factors
- DVT ppx: heparin
--- NOTE | 2024-12-12 12:48 | PHANOTE ---
med rec note- following up on a admission patient, jordon text received by physician to double check medication . tiger received has ofev 100mg daily but patient only been receiving 150mg bid. call physician group back at [phone] also called
patient girlfriend at [phone] left message for both to call back
--- NOTE | 2024-12-12 14:29 | W.PN.NEURO.1 ---
Today's Communication / Plan
-
tentatively 90 days of plavix
consider vascular intervention.
Neuro Assessment/Plan
Assessment
sudden right sided weakness, not much effect from TNK
Brain MRI imgs rev'd with patient and family showing stroke left medial temporal, cerebral peduncle, lateral thalamus, posterior internal capsule, basal ganglia, probably thalamogeniculate branch of CRM ADMINISTRATOR
CTA head/neck showing left carotid bulb 60% stenosis, right carotid 70% stenosis, left CRM ADMINISTRATOR.
Stroke etiology could be symptomatic moderate left carotid stenosis, given left CRM ADMINISTRATOR; or this could be embolic stroke of unknown source (ESUS) given that the left carotid is the straightest path for cardioembolism. I would say vascular is the
more likely etiology, and without intervention would have a high stroke risk ~15% per year, and surgery typically recommended if he will live more than 3 years. at his advanced age, patient and family deciding if they want to go through with the
surgery
Additional Afib screening is also indicated if he is interested, as when vascular etiology is suspected, still there is a ~20% afib detection rate with 3 years loop recorder
His deficits are quite severe, though thankfully the stroke territory is smaller than initially suspected, so I think we can tentatively add 90 days of plavix to the ASA/Lipitor.
Subjective/Objective
Subjective Data
Date of Service: December 12, 2024
persisting right sided weakness
Objective Data
Vital Signs
Temp Pulse Resp BP Pulse Ox
37.1 C 85 18 134/80 98
12/12/24 11:17 12/12/24 11:17 12/12/24 11:17 12/12/24 11:17 12/12/24 11:17
Lab Results
12/12/24 07:35
12/12/24 07:35
PT 13.9 Sec (11.4-14.6) 12/11/24 04:02
INR 1.02 12/11/24 04:02
APTT 29.2 Sec (23.4-35.0) 12/11/24 04:02
Sodium 139 mmol/L (135-145) 12/12/24 07:35
Potassium 4.0 mmol/L (3.5-5.1) 12/12/24 07:35
BUN 17 mg/dl (9-20) 12/12/24 07:35
Glucose 105 mg/dl (70-99) H 12/12/24 07:35
Calcium 9.4 mg/dl (8.4-10.2) 12/12/24 07:35
Phosphorus 3.4 mg/dl (2.5-4.5) 12/11/24 04:02
LDL Cholesterol, Calc 41 mg/dl 12/11/24 04:02
Patient Allergies
No Known Allergies Allergy (Verified 12/10/24 22:09)
Physical Exam
-
right facial droop, severe dysarthria
Dense right sided weakness, decreased tone. RUE no movement, RLE no antigravity
[2024-12-12] MEDS: ZETIA 10 MG PO (15:39)
[2024-12-12] MEDS: PLAVIX 75 MG PO (15:39)
[2024-12-12] MEDS: ZYLOPRIM 200 MG PO (15:39)
[2024-12-12] MEDS: TOPROL XL 25 MG PO (15:39)
[2024-12-12] MEDS: NORVASC 10 MG PO (15:40)
[2024-12-12] MEDS: VITAMIN D3 (cholecalciferol) 25 MCG PO (15:40)
[2024-12-12] MEDS: PROTONIX 40 MG PO (15:40)
--- NOTE | 2024-12-12 15:52 | PTOTSP ---
Speech Therapy VSE:
Patient presents with mild - moderate oral phase dysphagia and functional pharyngeal phase. No persistent penetration nor aspiration observed. At most, there was mild pharyngeal residue that did not appear to increase or impact overall swallow
function. Suspect etiology of swallow function likely related to acute CVA. Please see patient care note for full details of penetration and swallowing physiology.
Recommend:
1. Minced and moist solids and thin liquids
2. Medications as best tolerated
3. Strict aspiration precautions: Upright all meals, small sips, slow rate, only feed when fully awake/alert, check R buccal cavity for pocketing
4. Direct supervision for PO intake
5. FOUNTAIN PEN NIBS INSPECTOR to follow for further education regarding results and recommendations of study, to assess tolerance of diet, and to assess candidacy for solid advancement.
--- NOTE | 2024-12-12 15:53 | CON.MD ---
Consultation - Medical
-
Chief Complaint:�Stroke
�
History of Present Illness:�89-year-old right-handed male with PMH (HTN, HLD, CAD, gout, interstitial pulmonary fibrosis) presented to [facility] on 12/10/2024 with right-sided weakness and dysarthria 2 hours prior to arrival following a
stress test at [place] in the morning. CTA with no acute intracranial abnormality, CTA head with no significant arterial stenosis. CTA neck with atherosclerotic calcified plaque of the carotid bifurcation/proximal ICA with approximately 70% stenosis
on the right. Patient was given TNK. Also noted with creatinine of 1.7, unknown baseline. Shortly after arriving to the ICU he was able to lift his right arm and leg, had improved vision and improved speech as well as improved facial droop. In
the wheel adjuster 12/11/2024 he had dense hemiparesis, right side neglect, complete hemianopsia, dysarthria and right facial droop. Repeat CT scan with no bleed. MRI of the brain 12/11 with restricted diffusion in the medial left temporal lobe, left
cerebral peduncle and left posterior basal ganglia consistent with acute infarct. No evidence of hemorrhagic transformation. Seen by vascular surgery for right ICA stenosis with plan for right carotid endarterectomy 12/16. Plan for 90 days of
aspirin and Plavix and Lipitor from a neurologic perspective. Had video swallow test 12/12 recommending minced and moist solids with thin liquids with strict aspiration precautions. Patient has right buccal cavity pocketing.
�
Past Medical History:�HTN, HLD, CAD, gout, interstitial pulmonary fibrosis
Procedure History:�Right coronary artery PCI 1998, RCA NESSA times 08/15/2011
Family History:�None pertinent
�
Social History:�
Functional Level Premorbidly:�Independent with all activities�
Functional Level Currently:�Min assist eating, dependent toileting, dependent lower extremity self-care, max assist transfers, max assist bed mobility.
�
Tobacco:�Denies�
Alcohol:�2 drinks daily
Drug use:�Denies�
�
Lives with:�Partner part-time in September and part-time in [place]
24-hour assistance available:�Partner into supportive children
Number of floors:�2
# steps to enter:�3
# steps to second floor: Full flight
Potential First floor set up:�yes
Driving:�Yes
Occupation:�Retired
�
�
Allergies:�
Allergy/AdvReac Type Severity Reaction Status Date / Time
No Known Allergies Allergy Verified 12/10/24 22:09
�
Review of Systems:�
Constitutional: (x) abNormal _ fatigue, did not sleep well
Eye: (x) Normal _
Ear/Nose/Throat: (x) Normal _
Respiratory: (x) Normal _
Cardiovascular: (x) Normal _
Gastrointestinal: (x) Normal _
Genitourinary: (x) Normal _
Musculoskeletal: (x) Normal _
Integumentary: (x) Normal _
Neurologic: (x) abNormal _stroke, right sided weakness
Psychiatric: (x) Normal _
Endocrine: (x) Normal _
Hematologic/Lymphatic: (x) Normal _
Allergic/Immunologic: (x) Normal _
�
Medications:�
Active Current Visit Medication List
Category Date Time Status
Acetaminophen [Tylenol] Med 12/10/24 23:21 Active
650 mg PO Q4HPRN PRN
Allopurinol [Zyloprim] Med 12/12/24 13:00 Active
200 mg PO DAILY
Amlodipine [Norvasc] Med 12/12/24 13:00 Active
10 mg PO DAILY
Aspirin Chewable [Low Strength Aspirin] Med 12/12/24 09:00 Active
81 mg PO DAILY
Atorvastatin [Lipitor] Med 12/12/24 18:00 Active
80 mg PO QPM
Cholecalciferol (Vitamin D3) [VITAMIN D3 ( Med 12/12/24 13:00 Active
cholecalciferol)]
25 mcg PO DAILY
Clopidogrel Bisulfate [Plavix] Med 12/12/24 12:20 Active
75 mg PO DAILY
Ezetimibe [Zetia] Med 12/12/24 13:00 Active
10 mg PO DAILY
Flush (0.9% Sodium Chloride) [Flush (Nss)] Med 12/10/24 23:00 Active
See Dose Instructions IV PER PROTOCOL
Heparin Med 12/12/24 20:00 Active
5,000 units SC Q12
Labetalol HCl [Trandate] Med 12/10/24 23:21 Active
5 mg IV Q6HPRN PRN
Metoprolol Xl [Toprol Xl] Med 12/12/24 12:00 Active
25 mg PO DAILY
Pantoprazole [Protonix] Med 12/12/24 13:00 Active
40 mg PO DAILY
�
Vitals:�
Temp Pulse Resp BP Pulse Ox
98.7 F 85 18 134/80 98
12/12/24 11:17 12/12/24 11:17 12/12/24 11:17 12/12/24 11:17 12/12/24 11:17
Height 5 ft 10 in
Actual Weight 67.699 kg
Body Mass Index (BMI) 21.4
�
Physical Exam:�
General Appearance/Observation: Well-developed, well-nourished male in no apparent distress.�
Pain/Comfort Assessment: Denies�
Mood/Affect: tired�
�
Integumentary/Operative Site:�No lesions noted during course of exam.
�
Eyes: Conjunctiva/Lids: normal��� Pupils: pupils equal round and reactive to light and Accommodation
Ears/Nose/Throat: oral mucosa moist, throat clear.������������ Lips/Teeth/Gums: normal
Neck: No muscle spasm or tenderness�
Cardiovascular: Heart: regular, no murmur�
Pulses: dorsalis pedis 2+ bilaterally�
Respiratory: Respiratory Effort/Chest Expansion: normal������ Auscultation: Clear to auscultation bilaterally
Gastrointestinal: abdomen not tender, no distension, normal abdominal bowel sounds
Genitourinary: Catheter with clear yellow urine
Rectal Exam: Deferred�
Extremities:�Edema: None�Cyanosis: None�Trophic�changes: None
�
Neurology Exam: Limited with fatigue
Orientation: Alert, Oriented to self, Time, Place�
Memory: Is very fatigued but appears intact
Comprehension: Intact
Two step command: Intact
Cranial Nerves:
�� CNII:�Pupillary light reflex: Intact���Visual Field: Right homonymous hemianopsia versus neglect
�� CN III, IV, : Extraocular muscles: Intact�
�� CN V:�Facial Sensation�at�Forehead: Intact,�Maxilla: Intact,�Mandible: Intact
�� CN VII:�Facial movement: Right facial weakness
�� CN VIII:�Hearing: Normal
�� CN IX/X:�Speech & swallow: Dysarthria, dysphagia�position of Uvula: Midline
�� CN XI:�Shoulder shrug: Symmetric
�� CN XII:�Tongue protrusion: Decreased on the right
Sensory:
�� Light touch: Intact in left upper and lower extremities. Not intact right, inattentive to right.
�
Reflexes:
�� Biceps: 2+ bilaterally
�� Brachioradialis: 2+ bilaterally
�� Triceps: 2+ bilaterally
�� Patellar: 0 right, 2+ left
�� Achilles: 0 right, 2+ left
�� Babinski: Down going bilaterally
�� Clonus: None
�� Tomeka: Negative bilaterally�
Cerebellar: Dysmetria/Ataxia: None�on left, right is too weak
Musculoskeletal:Motor: (Manual muscle scale 0-5)�
Muscle SA EF WE EE FF FA HF KE DF EHL PF
Right� 0 0 0 0 0 0 0 0 0 0 0
Left 5 5 5 5 5 5 5 5 5 5 5
�
Tone: Normal in left extremities, decreased right extremities
Range of Motion: Passively within normal limits in all extremities�
�
Lab Results
Laboratory Data
12/12/24 07:35
12/12/24 07:35
PT 13.9 Sec (11.4-14.6) 12/11/24 04:02
INR 1.02 12/11/24 04:02
APTT 29.2 Sec (23.4-35.0) 12/11/24 04:02
Total Bilirubin 0.7 mg/dl (0.2-1.3) 12/10/24 21:39
AST 20 U/L (17-59) 12/10/24 21:39
ALT 15 U/L (0-50) 12/10/24 21:39
Alkaline Phosphatase 76 U/L (38-126) 12/10/24 21:39
Total Protein 6.2 g/dl (6.3-8.2) L 12/10/24 21:39
Albumin 4.1 g/dl (3.5-5.0) 12/10/24 21:39
�
Diagnostic Results:�as per HPI�
�
Assessment
89 y/o R-handed M PMH (HTN, HLD, CAD, gout, interstitial pulmonary fibrosis) with 12/10/2024 right hemiparesis, dysarthria, right neglect, and dysphagia s/p TNK with MRI noting. Also noted with creatinine of 1.7, unknown medial left temporal lobe,
left cerebral peduncle and left posterior basal ganglia acute infarcts with left ICA stenosis with plan for left carotid endarterectomy 12/16.
Plan�
PM&R�PT/OT to increase independence with ADLs, improve balance, coordination, endurance, strength, mobility, community reintegration, decreased burden of care on others and family education.�
�
CVA: Secondary prophylaxis with aspirin and Plavix for 90 days, statin, and BP control (SBP less than 180 and diastolic less than 100 to participate with therapy for ischemic stroke). Continue to monitor neurologic status.�
-Possible left carotid artery endarterectomy
Right nondominant hemiparesis: High risk for falls and sliding out of chair/bed. Safety reinforced.�
- Avoid using affected arm to help lift or pull patient as this will cause trauma to the shoulder. Right Multi-Podus boot to help prevent pressure sores, right plantarflexion contracture and external rotation of the right hip
Right Neglect: makes patient at increased risk for falls.� Will need therapy to work on scanning of environment for safe navigation.�
Dysphagia: speech, oral care protocol, aspiration precautions.� Video swallow test 12/12 recommending minced and moist solids with thin liquids with strict aspiration precautions. Patient has right buccal cavity pocketing. Advance diet as
tolerated.�
Dysarthria: speech�
Interstitial pulmonary fibrosis: Noted
HTN: Amlodipine 10 mg daily, metoprolol XL 25 mg daily, monitor closely�
HLD: Statin�
Coronary artery disease�: Aspirin, statin, beta-danita�
Psych: Psychology consult.� Monitor mood, medications as needed.�
Skin: monitor for pressure sores/rashes/lesions.�
Pain: acetaminophen as needed.�
Bowel: Colace and Senna, PRN bisacodyl.�
Bladder: Time void, PVRs, PRN straight cath.�
GI Prophylaxis: Pantoprazole�
DVT Prophylaxis: Mechanical, consider Lovenox.�
Pulmonary: Incentive spirometry�
Safety: Continue to reinforce assistance with all transfers.�
Code Status:� Full code
Dispo�(date/plan/equipment needs): Home with family care.� Social history reviewed.�
Functional and Medical Goals:�Modified Independent with ADL�s, ambulation, transfers��
Discharge Destination:�Acute inpatient rehabilitation, patient very active and functional including driving at baseline. Has good support at home. Will benefit from an acute inpatient rehabilitation program to advance diet, improve attention to
the right and improve mobility/ADLs/transfers. He will be able to tolerate 3 hours of therapy a day. Discussed with patient, , and daughters.
-A total of 60 minutes were spent with the patient preparing for the evaluation, obtaining history, performing examination and evaluation, counseling, data review, case management, care coordination, stock order lister, and EMR documentation.
�
Summary of recommendations:
-�Discharge Destination:�Acute inpatient rehabilitation,
CVA: Secondary prophylaxis with aspirin and Plavix for 90 days, statin, and BP control (SBP less than 180 and diastolic less than 100 to participate with therapy for ischemic stroke). Continue to monitor neurologic status.�
-Possible left carotid artery endarterectomy
Right nondominant hemiparesis: High risk for falls and sliding out of chair/bed. Safety reinforced.�
- Avoid using affected arm to help lift or pull patient as this will cause trauma to the shoulder. Right Multi-Podus boot to help prevent pressure sores, right plantarflexion contracture and external rotation of the right hip
Right Neglect: makes patient at increased risk for falls.� Will need therapy to work on scanning of environment for safe navigation.�
Dysphagia: speech, oral care protocol, aspiration precautions.� Minced and moist solids with thin liquids with strict aspiration precautions.
Dysarthria: speech�
DVT Prophylaxis: Mechanical, consider Lovenox.�
Bowel: Colace and Senna, PRN bisacodyl.�
Thank you for allowing me to care for your patient. Please contact me with any questions or concerns.
Consultation
-
Date/Time Consultation Performed: 12/12/24
Requesting Provider: Dr. Anson Murry
Performing Provider: Dr. Adelfo Moya
Reason for Consultation: Stroke
[2024-12-12] MEDS: LIPITOR 80 MG PO (18:38)
[2024-12-12] MEDS: COLACE 100 MG PO (20:31)
[2024-12-12] MEDS: HEPARIN 5000 UNITS SC (20:31)
[2024-12-13 03:46] VITALS: BP 160/80
[2024-12-13 06:00] VITALS: BMI 21.3
[2024-12-13 06:26] LABS: Hematocrit 38.3 % (39.0-52.0); Hemoglobin 13.3 g/dL (13.0-18.0); Mean Corp Hgb Conc. 34.7 g/dL (33.0-37.0); Mean Corpuscular Volume 95.3 fL (80.0-94.0); Platelet Count 156 10^3/uL (130-400); Red Cell Dist. Width 12.6 % (11.5-14.5)
[2024-12-13 07:48] LABS: Blood Urea Nitrogen 17 mg/dl (9-20); Calcium 9.4 mg/dl (8.4-10.2); Carbon Dioxide 24 mmol/L (22-30); Chloride 107 mmol/L (98-107); Estimated Creatinine Clearance 37 ml/min; Glucose 103 mg/dl (70-99); Potassium 3.8 mmol/L (3.5-5.1); Sodium 137 mmol/L (135-145); eGFR 52.84
[2024-12-13 08:47] VITALS: BP 164/86
[2024-12-13] MEDS: ZETIA 10 MG PO (09:16)
[2024-12-13] MEDS: ZYLOPRIM 200 MG PO (09:16)
[2024-12-13] MEDS: PROTONIX 40 MG PO (09:17)
[2024-12-13] MEDS: VITAMIN D3 (cholecalciferol) 25 MCG PO (09:17)
[2024-12-13] MEDS: PLAVIX 75 MG PO (09:18)
[2024-12-13] MEDS: TOPROL XL 25 MG PO (09:18)
[2024-12-13] MEDS: NORVASC 10 MG PO (09:18)
[2024-12-13] MEDS: COLACE 100 MG PO ×2 (09:19→20:31)
[2024-12-13] MEDS: HEPARIN 5000 UNITS SC ×2 (09:19→20:31)
[2024-12-13] MEDS: LOW STRENGTH ASPIRIN 81 MG PO (09:19)
[2024-12-13 11:00] VITALS: BP 136/77
[2024-12-13] MEDS: SENOKOT 17.2 MG PO (12:30)
--- NOTE | 2024-12-13 14:00 | W.PN.CARDCBS ---
Today's Communication / Plan
-
Neurologic plan is for dual antiplatelet therapy (aspirin and Plavix), likely for 90 days at their recommendation. If patient is found to have paroxysmal atrial fibrillation would warrant anticoagulation.
Will need outpatient monitor. Have reached out to patient's outpatient customer engagement representative for records and to see if they would like to facilitate monitor
Transthoracic echo without evidence of intracardiac shunting. Hold on SAM at this time
Evaluated by vascular surgery and there is no plans for any vascular intervention.
Impression / Plan
-
PCP: Anthony Rashid
Chief Credit Officer: Dr. Edvin Cruz
Impression:
Presented 12/10/2024 with right-sided weakness, hemiparesis, dysarthria/aphasia
Status post TNK 12/10/2024
Acute left hemispheric stroke on MRI
Coronary artery disease with prior stenting in 1999 an 2012
Hypertension
Hyperlipidemia
Gout
Echo 12/12/2024: Normal left ventricular size and function ejection fraction 60 to 65%, moderate much regurgitation, mild to moderate tricuspid regurgitation with estimated pulmonary artery pressures of 36 mmHg. No evidence to suggest an
intracardiac shunt.
Plan:
Briefly, 81-year-old man past medical history of CAD status post PCI, hypertension, hyperlipidemia who presented with acute CVA. Cardiology was consulted to evaluate for cardioembolic source of stroke.
Acute CVA. Presented 12/11/2024 with right-sided weakness, hemiparesis, dysarthria/aphasia with NIH stroke scale score of 17. Head CT was negative for acute bleed. CTA of head and neck failed to demonstrate any significant large vessel occlusion or
evidence of significant stenosis/thrombosis.
MRI 12/11/2024 with acute left hemispheric stroke of medial left temporal lobe, left cerebral peduncle and left posterior basal ganglia.
s/p TNK 12/10/2024
Still with severe right sided weakness/leg neglect and speech impairment
There is been no documentation of paroxysmal atrial fibrillation thus far and per review of patient's history no history of arrhythmia prior to admission
Neurologic plan, Dr Cabrera, is for dual antiplatelet therapy (aspirin and Plavix), likely for 90 days at their recommendation. If patient is found to have paroxysmal atrial fibrillation would warrant anticoagulation.
Will need outpatient monitor. Have reached out to patient's outpatient customer engagement representative for records and to see if they would like to facilitate monitor
Transthoracic echo without evidence of intracardiac shunting. Hold on SAM at this time
Lipids 12/11/2024 TC 121, HDL 60, LDL 41, triglycerides.
Lipids are at goal.
Continue statin and Zetia.
Patient has been evaluated by vascular surgery. There is calcified plaque at the carotid bifurcation on the left. Stenosis is felt to be less than 50% internal carotid bilaterally.
Vascular surgery is not recommending surgical intervention at this point
Hypertension
Blood pressures have improved without any documented hypotension as he has been put back on his outpatient regimen which includes metoprolol succinate 25 mg daily and amlodipine 10 mg daily.
Continue current antihypertensive drug regimen as listed.
Known history of coronary artery disease, EKG without ischemia. Troponin negative.
Per patient report he had stress test on day of presentation. Will obtain cardiac records.
Continue medical therapy/risk factor modification with aspirin, beta-danita, statin and amlodipine.
Not adding much else from a cardiac standpoint. Will sign off please call us if we can be of further assistance.
HPI:12/12/2024:
Patient is an 89-year-old male with past medical history significant for coronary artery disease with history of coronary stents, hypertension, hyperlipidemia who presented to [facility] ED on 12/10/2024 complaining of right sided weakness and dysarthria.
Patient sees cardiology at [facility] previously seen Dr. Russell now follows with Dr. Garcia and had routine pharmacologic stress test at [facility] on day of presentation and felt well prior to stress test. He then traveled to [place] to visit friends
when he developed acute onset of right-sided weakness and difficulty with speech he called 911 and presented to hospital as stroke alert. NIH stroke scale score 17 on arrival. CTA of head and neck were negative for large vessel thrombosis or
occlusion. Head CT was negative for bleed. EKG showed sinus rhythm. Patient was provided TNK. MRI was performed on 12/11/2024 which confirmed medial left temporal lobe, left cerebral peduncle and left posterior basal ganglia acute infarction.
Cardiology being asked to see patient given concern for acute cardioembolic event.
Talked with patient's significant other Tamiko at bedside as well as his daughters Sarah and Gus who helped to provide history. They report he was very active individual prior to his stroke. He had seen cardiology for routine visit and was
not having any symptoms. He has no history of any cardiac arrhythmias and had stenting in 1999 and 2012. Recent stress test was routine. They think he had an echo in October of this year.
Progress Note - Chief Credit Officer
Subjective
Date of Service: December 13, 2024
He is able to communicate that he has no chest pain or shortness of breath.
Objective
Labs:
12/13/24 05:44
12/13/24 05:44
Labs
Hgb 13.3 g/dL (13.0-18.0) 12/13/24 05:44
Hct 38.3 % (39.0-52.0) L 12/13/24 05:44
Plt Count 156 10^3/uL (130-400) 12/13/24 05:44
PT 13.9 Sec (11.4-14.6) 12/11/24 04:02
INR 1.02 12/11/24 04:02
APTT 29.2 Sec (23.4-35.0) 12/11/24 04:02
Sodium 137 mmol/L (135-145) 12/13/24 05:44
Potassium 3.8 mmol/L (3.5-5.1) 12/13/24 05:44
BUN 17 mg/dl (9-20) 12/13/24 05:44
Creatinine 1.3 mg/dL (0.7-1.3) 12/13/24 05:44
Glucose 103 mg/dl (70-99) H 12/13/24 05:44
Troponins
12/10/24
21:39
Troponin I < 0.012
Vital Signs and I&O:
Vital Signs
Temp Pulse Resp BP Pulse Ox
98.2 F 67 16 136/77 98
12/13/24 11:00 12/13/24 11:00 12/13/24 11:00 12/13/24 11:00 12/13/24 11:00
Vital Signs
Temp Pulse Resp BP Pulse Ox
98.2 F 67 16 136/77 98
12/13/24 11:00 12/13/24 11:00 12/13/24 11:00 12/13/24 11:00 12/13/24 11:00
Intake & Output
12/11/24 12/12/24 12/13/24 12/14/24
06:59 06:59 06:59 06:59
Intake Total 500 / 500 1420 / 1420 1800 / 1800
Output Total 550 / 550 2525 / 2525 1500 / 1500
Balance -50 / -50 -1105 / -1105 300 / 300
Physical Exam
Physical Exam
Still with speech impairment
Neurologically also still has right-sided weakness
Heart is regular rate and rhythm with normal S1 and S2, no S3 no S4 degree 1/6 apical systolic murmur no rubs
Lungs are clear auscultation bilaterally without wheezes rales or rhonchi
Abdomen soft nontender nondistended with normoactive bowel
Extremities no clubbing cyanosis or edema
[2024-12-13 15:00] VITALS: BP 136/74
--- NOTE | 2024-12-13 16:44 | W.PN.HOSP.TC ---
Today's Communication/Plan
-
Acute Rehab placement
PT/OT
Continue to monitor on telemetry and look for any atrial flutter or atrial fibrillation
Assessment / Plan
Assessment / Plan
Physical Exam
General: Not in acute distress
HEENT: Dry mucosal membranes. Neck supple.
Respiratory: Clear to Auscultation Bilaterally
Cardiac: S1/S2 and Regular Rhythm
GI: Soft, Non Tender, Non Distended and Normal Bowel Sounds
Musculoskeletal: No Cyanosis and No Edema
Neuro: R hemiparesis with severe right sided weakness. Right hemineglect. Right facial droop (facial droop improved as of 12/13/24) and severe dysarthria (speech more intelligible as of 12/13/24).
Assessment/Plan
89y M with PMH significant for cardiac stents and hypertension who presented to the [facility] complaining of R sided weakness and dysarthria. Patient stated that he underwent a stress test at [place] on 12/10/24 morning. He noted that this was a
chemical stress test and states that he has never had this type of stress before. He felt well after the study and traveled to [place] to visit with friends. Shortly after arrival here patient began to note weakness in the R side and slurred
speech. Patient and friend state that these symptoms started just under 2 hours from his arrival to the [facility] ED. Patient arrived with dense R hemiparesis. Decision was made to administer TNK.
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
Acute Strokes of the medial left temporal lobe, left cerebral peduncle and left posterior basal ganglia
- TNK administered at 22:19, 12/09/2024 -- repeat neuroimaging 24 to 36 hours later showed no bleed
- CTA head and neck with significant bilateral carotid stenosis
- MRI Brain with suspected left-sided embolic strokes as above
- Started DAPT with Aspirin and Plavix -- plan to continue DAPT for 90 days (Day 1 is 12/12/24)
- Continue Heparin DVT prophylaxis
- Continue high intensity statin with Lipitor 80 mg daily and Zetia
- Speech, PT/OT have been consulted, f/u recommendations
- Neurology evaluation for additional recommendations.
- Echo, cardiology consult given embolic nature of stroke -- TTE with no intracardiac shunting, no plans for SAM at this time per cardiology
- Cardiology reached out to patient's outpatient pet stylist so that patient can receive an outpatient technical fellow
- Vascular Surgery consulted given significant CTA evidence per radiologist's report of symptomatic carotid stenosis ipsilaterally -- although CTA radiologist report showed significant stenosis, carotid ultrasound
did not and vascular surgeon's reading of CTA did not show more than 50% stenosis -- so no vascular intervention at this
time
- No Atrial Fibrillation on telemetry -- if does develop A-Fib, then will need anticoagulation
Right Arm Swelling
- RUE ultrasound with no clots
Coronary Artery Disease status post (stent(s))
History of right coronary artery PCI in 1998 followed by RCA NESSA x 3 in 2011
- s/p chemical stress test on the morning of 12/10/24 (his first stress that was not done on a treadmill).
- Restart ASA as per neurology above
- Continue home beta danita
- Switched home Crestor to high intensity Atorvastatin
- Resume Ezetimibe
Hypertension
- Continue beta danita
- Continue Amlodipine
DELMY / CKD
- SCr = 1.7-->1.5-->1.3 after the administration of intravenous fluids.
- Follow labs / lytes over 48-72 hours to establish baseline.
GERD?
-Continue home PPI
Pulmonary Fibrosis
-Patient follows with pulmonary in [place] and has interstitial pulmonary fibrosis and was initiated on Nintedanib but was unable to tolerate due to diarrhea and fatigue.
-Nintedanib also has risk of bleeding so avoiding it now anyway
History of Vitamin D Deficiency?
-Continue Vitamin D
Gout
-Continue Allopurinol
Speech/Diet: IDDSI Minced and Moist Diet with Thin Liquids. Speech therapy to be continued inpatient and after discharge, outpatient.
DVT Prophylaxis: SCDs. Heparin Subq.
Code Status: Full
On 12/12/24, I spoke extensively with patient's domestic partner Tamiko, as well as patient's daughters, including Gus. I explained patient's current status and management plan, and I answered all of their questions and concerns to satisfaction.
On 12/12/24, I called patient's primary care provider's (Dr. Jhon Honeycutt's) office and I spoke to the nurse there, and I notified them that patient is hospitalized with stroke.
Dr. Honeycutt: [phone] (Fax number - [phone])
Anticipated Discharge: 24 - 48 hours
Subjective/Interval History
-
Date of Service: December 13, 2024
Patient was seen and examined. His speech was somewhat coherent today.
Objective Data
-
Labs:
Laboratory Results
12/13/24
05:44
WBC 9.7
Hgb 13.3
Hct 38.3 L
Plt Count 156
Sodium 137
Potassium 3.8
Chloride 107
Carbon Dioxide 24
BUN 17
Creatinine 1.3
Glucose 103 H
Calcium 9.4
Vital Signs:
Vital Signs
Temp Pulse Resp BP Pulse Ox
98.2 F 67 16 136/77 98
12/13/24 11:00 12/13/24 11:00 12/13/24 11:00 12/13/24 11:00 12/13/24 11:00
I&O
12/12/24 12/13/24 12/14/24
06:59 06:59 06:59
Intake Total 1420 / 1420 1800 / 1800
Output Total 2525 / 2525 1500 / 1500
Balance -1105 / -1105 300 / 300
[2024-12-13] MEDS: LIPITOR 80 MG PO (18:35)
[2024-12-13 19:53] VITALS: BP 126/68
[2024-12-13 23:30] VITALS: BP 142/78
[2024-12-14] VITALS (7 sets, daily range): BP systolic 102–156; BP diastolic 64–86; PULSE 71; O2SAT 92; BMI 21.1
[2024-12-14 06:20] LABS: Hematocrit 41.0 % (39.0-52.0); Hemoglobin 14.3 g/dL (13.0-18.0); Mean Corp Hgb Conc. 34.9 g/dL (33.0-37.0); Mean Corpuscular Volume 95.6 fL (80.0-94.0); Platelet Count 164 10^3/uL (130-400); Red Cell Dist. Width 12.7 % (11.5-14.5)
[2024-12-14 06:49] LABS: Blood Urea Nitrogen 22 mg/dl (9-20); Calcium 9.8 mg/dl (8.4-10.2); Carbon Dioxide 25 mmol/L (22-30); Chloride 105 mmol/L (98-107); Estimated Creatinine Clearance 35 ml/min; Glucose 109 mg/dl (70-99); Potassium 3.9 mmol/L (3.5-5.1); Sodium 137 mmol/L (135-145); eGFR 48.34
[2024-12-14] MEDS: ZETIA 10 MG PO (09:11)
[2024-12-14] MEDS: LOW STRENGTH ASPIRIN 81 MG PO (09:12)
[2024-12-14] MEDS: COLACE 100 MG PO ×2 (09:12→21:34)
[2024-12-14] MEDS: PLAVIX 75 MG PO (09:12)
[2024-12-14] MEDS: ZYLOPRIM 200 MG PO (09:12)
[2024-12-14] MEDS: TOPROL XL 25 MG PO (09:13)
[2024-12-14] MEDS: NORVASC 10 MG PO (09:13)
[2024-12-14] MEDS: HEPARIN 5000 UNITS SC ×2 (09:14→21:34)
[2024-12-14] MEDS: VITAMIN D3 (cholecalciferol) 25 MCG PO (09:14)
[2024-12-14] MEDS: PROTONIX 40 MG PO (09:19)
[2024-12-14] MEDS: SENOKOT 17.2 MG PO (12:46)
--- NOTE | 2024-12-14 18:42 | W.PN.HOSP.TC ---
Today's Communication/Plan
-
PT/OT
Placement
No A-Fib on tele so far
Monitor for A-Fib
Continue DAPT, high intensity statin
Assessment / Plan
Assessment / Plan
Physical Exam
General: Not in acute distress
HEENT: Dry mucosal membranes. Neck supple.
Respiratory: Clear to Auscultation Bilaterally
Cardiac: S1/S2 and Regular Rhythm
GI: Soft, Non Tender, Non Distended and Normal Bowel Sounds
Musculoskeletal: No Cyanosis and No Edema
Neuro: Right hemiparesis with severe right sided weakness. Right hemineglect. Right facial droop (facial droop improved as of 12/13/24 onwards) and severe dysarthria (speech more intelligible as of 12/13/24 onwards). RLE
strength improved somewhat as of 12/14/24.
Assessment/Plan
89y M with H significant for cardiac stents and hypertension who presented to the [facility] ED complaining of R sided weakness and dysarthria. Patient stated that he underwent a stress test at [place] on 12/10/24 morning. He noted that this was a
chemical stress test and states that he has never had this type of stress before. He felt well after the study and traveled to [place] to visit with friends. Shortly after arrival here patient began to note weakness in the R side and slurred
speech. Patient and friend state that these symptoms started just under 2 hours from his arrival to the [facility] ED. Patient arrived with dense R hemiparesis. Decision was made to administer TNK.
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
Acute Strokes of the medial left temporal lobe, left cerebral peduncle and left posterior basal ganglia
- TNK administered at 22:19, 12/09/2024 -- repeat neuroimaging 24 to 36 hours later showed no bleed
- CTA head and neck with significant bilateral carotid stenosis
- MRI Brain with suspected left-sided embolic strokes as above
- Started DAPT with Aspirin and Plavix -- plan to continue DAPT for 90 days (Day 1 is 12/12/24)
- Continue Heparin DVT prophylaxis
- Continue high intensity statin with Lipitor 80 mg daily and Zetia
- Speech, PT/OT have been consulted, f/u recommendations
- Neurology evaluation for additional recommendations.
- Echo, cardiology consult given embolic nature of stroke -- TTE with no intracardiac shunting, no plans for SAM at this time per cardiology
- Cardiology reached out to patient's outpatient dialer so that patient can receive an outpatient hall monitor
- Vascular Surgery consulted given significant CTA evidence per radiologist's report of symptomatic carotid stenosis ipsilaterally -- although CTA radiologist report showed significant stenosis, carotid ultrasound
did not and vascular surgeon's reading of CTA did not show more than 50% stenosis -- so no vascular intervention at this
time
- No Atrial Fibrillation on telemetry -- if does develop A-Fib, then will need anticoagulation
Right Arm Swelling
- RUE ultrasound with no clots
Coronary Artery Disease status post (stent(s))
History of right coronary artery PCI in 1998 followed by RCA NESSA x 3 in 2011
- s/p chemical stress test on the morning of 12/10/24 (his first stress that was not done on a treadmill).
- Restart ASA as per neurology above
- Continue home beta danita
- Switched home Crestor to high intensity Atorvastatin
- Resume Ezetimibe
Hypertension
- Continue beta danita
- Continue Amlodipine
DELMY / CKD
- SCr = 1.7-->1.5-->1.3 after the administration of intravenous fluids.
- Follow labs / lytes over 48-72 hours to establish baseline.
GERD?
-Continue home PPI
Pulmonary Fibrosis
-Patient follows with pulmonary in [place] and has interstitial pulmonary fibrosis and was initiated on Nintedanib but was unable to tolerate due to diarrhea and fatigue.
-Nintedanib also has risk of bleeding so avoiding it now anyway
History of Vitamin D Deficiency?
-Continue Vitamin D
Gout
-Continue Allopurinol
Speech/Diet: IDDSI Minced and Moist Diet with Thin Liquids. Speech therapy to be continued inpatient and after discharge, outpatient.
DVT Prophylaxis: SCDs. Heparin Subq.
Code Status: Full
On 12/12/24, I spoke extensively with patient's domestic partner Tamiko, as well as patient's daughters, including Gus. I explained patient's current status and management plan, and I answered all of their questions and concerns to satisfaction.
On 12/12/24, I called patient's primary care provider's (Dr. Jhon Honeycutt's) office and I spoke to the nurse there, and I notified them that patient is hospitalized with stroke.
Dr. Honeycutt: [phone] (Fax number - [phone])
I discussed patient's case with patient's Domestic Partner Tamiko, who was present in patient's room today.
Anticipated Discharge: 24 - 48 hours
Subjective/Interval History
-
Date of Service: December 14, 2024
Patient was seen and examined. He was able to move his RLE better today.
Objective Data
-
Labs:
Laboratory Results
12/14/24
05:34
Sodium 137
Potassium 3.9
Chloride 105
Carbon Dioxide 25
BUN 22 H
Creatinine 1.4 H
Glucose 109 H
Calcium 9.8
Vital Signs:
Vital Signs
Temp Pulse Resp BP Pulse Ox
97.4 F 62 16 111/68 99
12/14/24 15:00 12/14/24 15:00 12/14/24 15:00 12/14/24 15:00 12/14/24 15:00
I&O
12/13/24 12/14/24 12/15/24
06:59 06:59 06:59
Intake Total 1800 / 1800
Output Total 1500 / 1500 775 / 775
Balance 300 / 300 -775 / -775
[2024-12-14] MEDS: LIPITOR 80 MG PO (18:51)
[2024-12-15 03:12] VITALS: BP 143/93
[2024-12-15] MEDS: TYLENOL 650 MG PO (05:22)
[2024-12-15 05:44] VITALS: BMI 20.7
[2024-12-15 07:00] VITALS: BP 132/75
[2024-12-15] MEDS: VITAMIN D3 (cholecalciferol) 25 MCG PO (08:35)
[2024-12-15] MEDS: NORVASC 10 MG PO (08:35)
[2024-12-15] MEDS: LOW STRENGTH ASPIRIN 81 MG PO (08:35)
[2024-12-15] MEDS: COLACE 100 MG PO (08:35)
[2024-12-15] MEDS: ZYLOPRIM 200 MG PO (08:35)
[2024-12-15] MEDS: ZETIA 10 MG PO (08:35)
[2024-12-15] MEDS: SENOKOT 17.2 MG PO (08:35)
[2024-12-15] MEDS: TOPROL XL 25 MG PO (08:35)
[2024-12-15] MEDS: PROTONIX 40 MG PO (08:35)
[2024-12-15] MEDS: PLAVIX 75 MG PO (08:35)
[2024-12-15] MEDS: HEPARIN 5000 UNITS SC (08:36)
[2024-12-15 08:58] LABS: Hematocrit 39.3 % (39.0-52.0); Hemoglobin 13.4 g/dL (13.0-18.0); Mean Corp Hgb Conc. 34.1 g/dL (33.0-37.0); Mean Corpuscular Volume 96.8 fL (80.0-94.0); Platelet Count 184 10^3/uL (130-400); Red Cell Dist. Width 12.7 % (11.5-14.5)
[2024-12-15 09:25] LABS: Blood Urea Nitrogen 26 mg/dl (9-20); Calcium 9.6 mg/dl (8.4-10.2); Carbon Dioxide 26 mmol/L (22-30); Chloride 106 mmol/L (98-107); Estimated Creatinine Clearance 30 ml/min; Glucose 117 mg/dl (70-99); Potassium 4.1 mmol/L (3.5-5.1); Sodium 137 mmol/L (135-145); eGFR 41.19
--- NOTE | 2024-12-15 09:46 | W.PN.HOSP.TC ---
Addendum entered and electronically signed by Angel Abarca MD 12/15/24 15:27:
Addendum
Discussed with staff. Patient was evaluated by acute rehab doctor, okay to go to acute rehab.
Reviewed charts.
Total discharge time spent to see the patient on the floor, examine the patient, review data and lab results, discuss discharge plan with patient, nursing staff around 65 minutes.
Original Note:
Today's Communication/Plan
-
DC
Assessment / Plan
Assessment / Plan
Physical Exam
General: Not in acute distress
HEENT: Dry mucosal membranes. Neck supple.
Respiratory: Clear to Auscultation Bilaterally
Cardiac: S1/S2 and Regular Rhythm
GI: Soft, Non Tender, Non Distended and Normal Bowel Sounds
Musculoskeletal: No Cyanosis and No Edema
Neuro: Right hemiparesis with severe right sided weakness. Right hemineglect. Right facial droop (facial droop improved as of 12/13/24 onwards) and severe dysarthria (speech more intelligible as of 12/13/24 onwards). RLE
strength improved somewhat as of 12/14/24.
Psych: calm
Assessment/Plan
89y M with PMH significant for cardiac stents and hypertension who presented to the [facility] ED complaining of R sided weakness and dysarthria. Patient stated that he underwent a stress test at [place] on 12/10/24 morning. He noted that this was a
chemical stress test and states that he has never had this type of stress before. He felt well after the study and traveled to [place] to visit with friends. Shortly after arrival here patient began to note weakness in the R side and slurred
speech. Patient and friend state that these symptoms started just under 2 hours from his arrival to the [facility] ED. Patient arrived with dense R hemiparesis. Decision was made to administer TNK.
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
Acute Strokes of the medial left temporal lobe, left cerebral peduncle and left posterior basal ganglia
- TNK administered at 22:19, 12/09/2024 -- repeat neuroimaging 24 to 36 hours later showed no bleed
- CTA head and neck with significant bilateral carotid stenosis
- MRI Brain with suspected left-sided embolic strokes as above
- Started DAPT with Aspirin and Plavix -- plan to continue DAPT for 90 days (Day 1 is 12/12/24)
- Continue Heparin DVT prophylaxis
- Continue high intensity statin with Lipitor 80 mg daily and Zetia
- Speech, PT/OT have been consulted, f/u recommendations
- Neurology evaluation for additional recommendations.
- Echo, cardiology consult given embolic nature of stroke -- TTE with no intracardiac shunting, no plans for SAM at this time per cardiology
- Cardiology reached out to patient's outpatient testing machine operator so that patient can receive an outpatient cardiac technician
- Vascular Surgery consulted given significant CTA evidence per radiologist's report of symptomatic carotid stenosis ipsilaterally -- although CTA radiologist report showed significant stenosis, carotid ultrasound
did not and vascular surgeon's reading of CTA did not show more than 50% stenosis -- so no vascular intervention at this
time
- No Atrial Fibrillation on telemetry -- if does develop A-Fib, then will need anticoagulation
Right Arm Swelling
- RUE ultrasound with no clots
Coronary Artery Disease status post (stent(s))
History of right coronary artery PCI in 1998 followed by RCA NESSA x 3 in 2011
- s/p chemical stress test on the morning of 12/10/24 (his first stress that was not done on a treadmill).
- Restart ASA as per neurology above
- Continue home beta danita
- Switched home Crestor to high intensity Atorvastatin
- Resume Ezetimibe
Hypertension
- Continue beta danita
- Continue Amlodipine
DELMY / CKD
- SCr = 1.7-->1.5-->1.3 after the administration of intravenous fluids.
- Follow labs / lytes over 48-72 hours to establish baseline.
GERD?
-Continue home PPI
Pulmonary Fibrosis
-Patient follows with pulmonary in [place] and has interstitial pulmonary fibrosis and was initiated on Nintedanib but was unable to tolerate due to diarrhea and fatigue.
-Nintedanib also has risk of bleeding so avoiding it now anyway
History of Vitamin D Deficiency?
-Continue Vitamin D
Gout
-Continue Allopurinol
Speech/Diet: IDDSI Minced and Moist Diet with Thin Liquids. Speech therapy to be continued inpatient and after discharge, outpatient.
DVT Prophylaxis: SCDs. Heparin Subq.
Code Status: Full
On 12/12/24, Dr Murry spoke extensively with patient's domestic partner Tamiko, as well as patient's daughters, including Gus. I explained patient's current status and management plan, and I answered all of their questions and concerns to
satisfaction.
On 12/12/24, Dr Murry called patient's primary care provider's (Dr. Jhon Honeycutt's) office and I spoke to the nurse there, and I notified them that patient is hospitalized with stroke.
Dr. Honeycutt: [phone] (Fax number - [phone])
Dr Murry discussed patient's case with patient's Domestic Partner Tamiko, who was present in patient's room.
Anticipated Discharge: Today
Subjective/Interval History
-
Date of Service: December 15, 2024
No issues over night
Objective Data
-
Labs:
Laboratory Results
12/15/24
08:28
WBC 9.1
Hgb 13.4
Hct 39.3
Plt Count 184
Sodium 137
Potassium 4.1
Chloride 106
Carbon Dioxide 26
BUN 26 H
Creatinine 1.6 H
Glucose 117 H
Calcium 9.6
Vital Signs:
Vital Signs
Temp Pulse Resp BP Pulse Ox
97.5 F 58 20 132/75 98
12/15/24 07:00 12/15/24 07:00 12/15/24 07:00 12/15/24 07:00 12/15/24 07:00
I&O
12/14/24 12/15/24 12/16/24
06:59 06:59 06:59
Intake Total 120 / 120
Output Total 1475 / 1475
Balance -1355 / -1355
[2024-12-15 11:00] VITALS: BP 119/73
[2024-12-15 11:12] VITALS: BP 119/73; O2SAT 98
[2024-12-15 11:14] VITALS: BP 119/73; PULSE 57; O2SAT 96
--- NOTE | 2024-12-15 13:30 | CM ---
CM reviewed chart, patient seen bedside with , discussed [facility] able to accept patient for [facility] Re[facility] today. Patients daughter, Sarah, updated via phone. IMM verbally reviewed, provided with copy, placed in chart. [facility] can accept 3:00 p.m. and
after. [facility] will continue to follow for all discharge planning needs.
Plan; [facility]
Report: [id number]
[2024-12-15 15:00] VITALS: BP 132/70
--- NOTE | 2024-12-15 15:04 | W.DCSUMMARY ---
Discharge Summary
Discharge Data
Date of Admission: 12/10/24
Date of Discharge: 12/15/24
-
Pending Results: No
Hospital Course
89-year old right-handed male presented to the hospital on 12/10/24 through EMT with report of right-sided weakness and dysarthria. Reportedly, patient underwent a cardiac chemical stress test at [place] the day before (12/10/24). The study went
smoothly and he continued to be in his usual state during the day. At 2030, his friend noted that he patient suddenly developed dysarthria and right-sided weakness, prompting him to call 911. EMS activated a stroke alert. CT head, CTA head/neck, and
CT perfusion were obtained and were negative for any acute abnormalities. NIHSS was 17 for right-sided hemiplegia, severe dysarthria, severe aphasia, right facial drooping, right-sided neglect, and right visual field loss. TNK was administered per
protocol. He was not a candidate for IAT due to no LVO. Initially, his symptoms improved slightly, but then worsened significantly again overnight, prompting a stroke alert to be activated. CT head, CTA head/neck was obtained again and is negative
for any acute abnormalities. Patient continued to have persistent symptoms. He was admitted to ICU and was followed by neurologist and drafter seismograph. Neurologist recommended dual antiplatelet therapy for 90 days with high potency statin therapy.
Vascular surgery evaluated the patient regarding the CTA of head and neck that showed carotid artery disease. Per vascular, CT angiogram images personally reviewed and centerline reconstructions performed, there was a calcified plaque at the
carotid bifurcation on the left. Vascular surgeon concluded that there was a just under 50% stenosis at the carotid bifurcation which corresponded with the carotid duplex findings. Cardiology service was involved in the care. Thoracic
echocardiogram did not show evidence of intracardiac shunting left ventricular ejection fraction of 60 to 65%. Patient was evaluated by him specialist and recommended acute rehab placement. PT/OT/speech evaluated the patient. He tolerated IDDSI
5/minced diet and patient remained hemodynamically stable. manager security and safety was involved in discharge planning. Patient was discharged to acute rehab in a stable condition.
Discharge Plan
-
Patient Disposition: Acute Rehab Facility
Discharge Diagnosis/Procedures: Acute left hemispheric stroke on MRI/s/p TNK administered 12/09/2024 -- repeat neuroimaging 24 to 36 hours later showed no bleed / right-sided weakness, hemiparesis, dysarthria/aphasia
CTA head/neck showing left carotid bulb 60% stenosis, right carotid 70% stenosis, left VETERINARY RECEPTIONIST. Per vascular surgeon's reading of CTA did not show more than 50% stenosis -- so no vascular intervention at this time.
Continue high intensity statin with Lipitor 80 mg daily and Zetia
Started DAPT with Aspirin and Plavix -- plan to continue DAPT for 90 days (Day 1 is 12/12/24)
Diet: As tolerated
Referrals:
damaris giles [Other, Cardiology] - in two to four weeks
Meño Elise MD [Active, Neurology] - in one month
Jhon Honeycutt MD [Non-Admitting Privileges, Family Practice] - in one to two weeks
UNKNOWN - PT DOES,NOT KNOW [Family Provider]
Prescriptions:
New
bisacodyl 10 mg Suppository
10 mg AR HSPRN PRN (Reason: if no BM with oral bisacodyl) Qty: 12 0RF
bisacodyl 5 mg Tablet,Delayed Release (Dr/Ec)
10 mg PO DAILYPRN PRN (Reason: constipation) Qty: 20 0RF
atorvastatin 80 mg Tablet
80 mg PO QPM Qty: 30 0RF
sennosides [Tameka-olga] 8.6 mg Tablet
17.2 mg PO NOON Qty: 60 0RF
clopidogrel 75 mg Tablet
75 mg PO DAILY Qty: 90 0RF
acetaminophen 325 mg Tablet
650 mg PO Q4HPRN PRN (Reason: ESPINOZA, mild pain, or temp >100.4F) Qty: 10 0RF
pantoprazole 40 mg Tablet,Delayed Release (Dr/Ec)
40 mg PO DAILY Qty: 30 0RF
Continued
amlodipine 10 mg Tablet
10 mg PO DAILY
metoprolol succinate 25 mg Tablet Extended Release 24 Hr
25 mg PO DAILY
ezetimibe 10 mg Tablet
10 mg PO DAILY
allopurinol 100 mg Tablet
200 mg PO DAILY
valacyclovir [Valtrex] 500 mg Tablet
500 mg PO BIDPRN PRN (Reason: cold sores)
cholecalciferol (vitamin D3) [Vitamin D3] 25 mcg (1,000 unit) Tablet
25 mcg PO DAILY
coQ10 (ubiquinol) 100 mg Capsule
100 mg PO DAILY
turmeric 400 mg Capsule
400 mg PO DAILY
aspirin 81 mg Tablet,Delayed Release (Dr/Ec)
81 mg PO DAILY
Discontinued
rosuvastatin 20 mg Tablet
20 mg PO DAILY
omeprazole 20 mg Capsule,Delayed Release(Dr/Ec)
20 mg PO DAILY
Discharge Orders:
Discharge Patient (As Directed); Ordered 12/15/24
Ordered By: Angel Abarca
Discharge Date and Time
Print Language: TAJIK
== END 2024-12-15 16:29 | DRG 62 ==
LOC: 4 WEST ACU 23:07
PROVIDERS: Hospitalist; ADMITTING PHYSICIAN Hospitalist; ATTENDING PHYSICIAN Internal Medicine; CONSULT PHYSICIAN Internal Medicine; CONSULT PHYSICIAN Physical Medicine & Rehabilitation; CONSULT PHYSICIAN Psychiatry & Neurology Neurology; CONSULT PHYSICIAN Surgery Vascular Surgery; EMERGENCY PHYSICIAN Emergency Medicine; OTHER PHYSICIAN Internal Medicine Cardiovascular Disease
PROC: 3E03317 Introduction of Other Thrombolytic into Peripheral Vein, Percutaneous Approach (ICD-10-PCS; 2024-12-10)
DX: I63.133 Cerebral infarction due to embolism of bilateral carotid arteries (principal); G81.91 Hemiplegia, unspecified affecting right dominant side; N17.9 Acute kidney failure, unspecified; R41.4 Neurologic neglect syndrome; R47.1 Dysarthria and anarthria; R47.01 Aphasia; I65.21 Occlusion and stenosis of right carotid artery; I65.22 Occlusion and stenosis of left carotid artery; Z79.899 Other long term (current) drug therapy; I25.10 Atherosclerotic heart disease of native coronary artery without angina pectoris; Z95.5 Presence of coronary angioplasty implant and graft; I12.9 Hypertensive chronic kidney disease with stage 1 through stage 4 chronic kidney disease, or unspecified chronic kidney disease; N18.9 Chronic kidney disease, unspecified; R29.810 Facial weakness; J84.10 Pulmonary fibrosis, unspecified; B00.1 Herpesviral vesicular dermatitis; E78.00 Pure hypercholesterolemia, unspecified; I49.3 Ventricular premature depolarization; R29.717 NIHSS score 17; Z77.090 Contact with and (suspected) exposure to asbestos; Z79.82 Long term (current) use of aspirin; Z87.891 Personal history of nicotine dependence; Z91.81 History of falling
CPT/HCPCS: 0042T; 70450; 70496; 70498; 70551; 71045; 74230; 80048; 80053; 80061; 81003; 81015; 82962; 83036; 83735; 84100; 84484; 85025; 85027; 85610; 85652; 85730; 92523; 92526; 92610; 92611; 93005; 93306; 93880; 93971; 96374; 97110; 97112; 97163; 97167; 97530; 97535; 99291; J3101; Q9967